=== PATIENT | male | born 1985 | race Caucasian/White ===

== ENCOUNTER 2020-07-25 12:03 | Inpatient (IN) | payer BC ==
[~2020-07-25] VITALS: Ht 182.9 cm; Wt 95.5 kg
[~2020-07-25 12:03] MED LIST: DIPH25TA89 PO; PRED50TA PO
[2020-07-25] MEDS ORDERED: vancomycin/NS 1 GM ADD-VANTAGE 250 ML IV ONE (12:10)
[2020-07-25] MEDS ORDERED: piperacillin/tazo 3.375gm/50ml 50 ML IV ONE (12:10)
[2020-07-25] MEDS ORDERED: normal saline 1000ML IV soln IV ONE (12:10)
[2020-07-25 12:56] LABS: BASOPHILS # (AUTO) 0.1 X10'3 (0-0.2); BASOPHILS % (AUTO) 0.6 % (0-1); EOSINOPHILS % (AUTO) 0.5 % (0-6); HEMATOCRIT 33.9 % (42.0-52.0); HEMOGLOBIN 11.6 g/dl (14.0-17.9); LYMPHOCYTES # (AUTO) 0.9 X10'3 (1.1-4.8); LYMPHOCYTES % (AUTO) 11.5 % (21-51); MEAN CORPUSCULAR HEMOGLOBIN 34.6 PG (27.0-31.0); MEAN CORPUSCULAR HGB CONC 34.2 g/dL (33.0-36.5); MEAN CORPUSCULAR VOLUME 101.1 FL (78-98); MEAN PLATELET VOLUME 8.2 FL (7.4-10.4); MONOCYTES # (AUTO) 0.7 X10'3 (0-0.9); MONOCYTES % (AUTO) 9.1 % (2-12); NEUTROPHILS # (AUTO) 6.3 X10'3 (1.8-7.7); NEUTROPHILS % (AUTO) 78.3 % (42-75); PLATELET COUNT 115 X10'3 (140-440); RED BLOOD COUNT 3.35 X10'6 (4.70-6.10); WHITE BLOOD COUNT 8.1 X10'3 (4.5-11.0)
[2020-07-25 13:02] LABS: ALANINE AMINOTRANSFERASE 59 U/L (12-78); ALBUMIN/GLOBULIN RATIO 0.4 (1.1-1.5); ALKALINE PHOSPHATASE 324 IU/L (46-116); ANION GAP 6 (8-16); ASPARTATE AMINO TRANSFERASE 69 U/L (10-37); BILIRUBIN,TOTAL 2.3 MG/DL (0.1-1.0); BLOOD UREA NITROGEN 9 MG/DL (7-18); BUN/CREATININE RATIO 10.7 (5.4-32.0); CALCIUM 8.4 MG/DL (8.5-10.1); CHLORIDE 98 MMOL/L (99-107); CREATININE 0.84 MG/DL (0.60-1.10); GLUCOSE 147 MG/DL (70-104); SODIUM 135 MMOL/L (135-145); TOTAL CARBON DIOXIDE 31.3 MMOL/L (24-32); TOTAL PROTEIN 6.6 G/DL (6.4-8.2); eGFR > 90 ML/MIN
[2020-07-25 13:17] LABS: POTASSIUM 2.7 MMOL/L (3.5-5.1)
[2020-07-25] MEDS ORDERED: LORazepam 2 mg/ml vial IV ONE (13:45)
[2020-07-25] MEDS ORDERED: potassium Cl 10 mEq/100mL bag IV ONE (13:55)
--- NOTE | 2020-07-25 14:09 | NUR ---
1ST LITER NS INFUSING W/O
--- NOTE | 2020-07-25 14:41 | NUR ---
2ND LITER NS INFUSING W/O, VASCULAR STUDY HAS BEEN DONE
--- NOTE | 2020-07-25 15:00 | NUR ---
PT TO CT
[2020-07-25 15:19] LABS: TOTAL CELLS COUNTED 100
[2020-07-25 15:20] LABS: PLATELET ESTIMATE DECREASED; SMUDGE CELLS 1+
--- NOTE | 2020-07-25 15:22 | NUR ---
3RD LITER INFUSING, LAB IS AT BEDSIDE FOR REPEAT LACTIC, PT IS RESTING QUIETLY ON GURNEY
[2020-07-25] MEDS ORDERED: CLINDAMYCIN/D5W 900mg/50ml 50 ML IV ONE (15:25)
[2020-07-25] MEDS ORDERED: BUPR1FIL3 SL (15:28)
[2020-07-25] MEDS ORDERED: CLON0.5T4 PO (15:28)
[2020-07-25] MEDS ORDERED: FLUO10CA28 PO (15:29)
--- NOTE | 2020-07-25 15:53 | NUR ---
Roland GARCIA AWARE PT HAS RECEIVED 3 LITERS OF NS, GAVE VERBAL ORDER FOR NICOTINE PATCH 14MG, PT WAS UP AT BEDSIDE TO USE URINAL WITHOUT ASSIST
[2020-07-25] MEDS ORDERED: nicotine 14mg patch - 24hr TD ONE (15:55)
[2020-07-25 16:17] LABS: CLARITY,URINE CLEAR (Clear); GLUCOSE, URINE NEGATIVE (Neg); KETONES,URINE NEGATIVE (Neg); LEUKOCYTE ESTERASE ,URINE NEGATIVE (Neg); NITRITES, URINE NEGATIVE (Neg); OCCULT BLOOD,URINE NEGATIVE (Neg); PH,URINE 6.5 (4.8-8.0); PROTEIN,URINE NEGATIVE (Neg)
[2020-07-25 16:19] LABS: URINE AMPHETAMINE SCREEN NEGATIVE (Neg); URINE BARBITUATE SCREEN NEGATIVE (Neg); URINE BENZODIAZEPINES SCREEN NEGATIVE (Neg); URINE CANNABINOID SCREEN NEGATIVE (Neg); URINE COCAINE SCREEN NEGATIVE (Neg); URINE METHADONE SCREEN NEGATIVE (Neg); URINE OPIATE SCREEN NEGATIVE (Neg); URINE PHENCYCLIDINE SCREEN NEGATIVE (Neg)
[2020-07-25] MEDS ORDERED: TETanus/Pertussis (Acell)/Diphther VAC/PF (Tdap-Adult) 0.5ml syringe IMVAC ONE (16:45)
[2020-07-25 16:50] LABS: COLOR,URINE DARK YELLOW (Yellow); UA COLLECTION TYPE CLN CATCH MIDSTREAM
[2020-07-25] MEDS ORDERED: metoclopramide 5 mg/ml inj IV PRN (16:50)
[2020-07-25] MEDS ORDERED: magnesium 4gm in 100ml NS 100 ML IV PRN (16:50)
[2020-07-25] MEDS ORDERED: mag hydrox/Alum hydrox/simeth 30ml oral suspension PO PRN (16:50)
[2020-07-25] MEDS ORDERED: LORazepam 1 MG tablet PO PRN (16:50)
[2020-07-25] MEDS ORDERED: potassium CL 10mEq/100ml bag 100 ML IV PRN (16:50)
[2020-07-25] MEDS ORDERED: HYDROmorphone inj. 0.5 MG/0.5 ML DISP.SYRIN IV PRN (16:50)
[2020-07-25] MEDS ORDERED: HYDROcodone/acetaminophen 5mg/325mg tablet PO PRN (16:50)
[2020-07-25] MEDS ORDERED: acetaminophen 650mg rectal suppository RC PRN (16:50)
[2020-07-25] MEDS ORDERED: dextrose 50%-water 50ml dispensing syringe IV PRN (16:50)
[2020-07-25] MEDS ORDERED: haloperidol lactate 5mg/ml inj IM PRN (16:50)
[2020-07-25] MEDS ORDERED: LORazepam 2 mg/ml vial IV PRN (16:50)
[2020-07-25] MEDS ORDERED: HYDROcodone/acetaminophen 10/325mg tab PO PRN (16:50)
[2020-07-25] MEDS ORDERED: magnesium 2GM in 50ml NS 50 ML IV PRN (16:50)
[2020-07-25] MEDS ORDERED: haloperidol 5mg tablet PO PRN (16:50)
[2020-07-25] MEDS ORDERED: acetaminophen 325mg tablet PO PRN (16:50)
[2020-07-25] MEDS ORDERED: bisacodyl 10mg suppository rectal RC PRN (16:50)
[2020-07-25] MEDS ORDERED: magnesium hydroxide 30ml (MOM) UD suspension PO PRN (16:50)
[2020-07-25] MEDS ORDERED: ondansetron/PF 4mg/2ml inj IV PRN (16:50)
[2020-07-25] MEDS ORDERED: thiamine 100mg/ml 2ml inj. IV ONE (16:50)
--- NOTE | 2020-07-25 17:10 | NUR ---
PT CONTINUES TO REST QUIETLY ON GURNEY, RESP EVEN AND UNLABORED, CAP REFILL TO RT FOOT IS LESS THAN 2 SECONDS
[2020-07-25 17:24] LABS: HEMOGLOBIN A1C 5.1 % (4.5-6.2)
[2020-07-25] MEDS: normal saline 1000ml 1,000 ML IV SCH (18:08)
[2020-07-25] MEDS ORDERED: buprenorphine/naloxone 8MG-2MG SUBlingual film SL SCH (20:00)
--- NOTE | 2020-07-25 20:31 | NUR ---
Patient in room ED 16. I have received report from WILLA Powell and had the opportunity to ask questions and assume patient care.
[2020-07-25] MEDS: buprenorphine/naloxone 8MG-2MG SUBlingual film SL SCH (20:35)
[2020-07-25] MEDS: clonazePAM 0.5mg tablet PO SCH (20:35)
[2020-07-25 21:00] VITALS: BP 162/97
[2020-07-25] MEDS ORDERED: temazepam 15mg capsule PO PRN (21:00)
--- NOTE | 2020-07-25 21:03 | NUR ---
pt arrived in the floor, SBP on the 160's, HR 110, P/S 10/10, RLE swollen, warmth and tender, pedal pulses palpable.
[2020-07-25] MEDS: K and/or MAG REPLACEMENT MC SCH (21:05)
[2020-07-25] MEDS: heparin, porcine 5000 units/ml vial SQ SCH (21:10)
[2020-07-25] MEDS: potassium Cl 20 mEq SR tablet PO PRN (21:44)
[2020-07-25] MEDS ORDERED: vancomycin/NS 1 GM ADD-VANTAGE 250 ML IV SCH (23:00)
[2020-07-26] VITALS: BP 139/74
[2020-07-26] MEDS ORDERED: piperacillin/tazo 3.375gm/50ml 50 ML IV SCH
[2020-07-26] MEDS: CLINDAMYCIN/D5W 900mg/50ml 50 ML IV SCH ×3 (00:17→17:56)
[2020-07-26] MEDS: penicillin G potassium inj 3,000,000 UNIT in normal saline 100ml IV soln 100 ML IV SCH ×6 (00:17→21:08)
[2020-07-26] MEDS: acetaminophen 325mg tablet PO PRN (00:24)
[2020-07-26] MEDS: potassium Cl 20 mEq SR tablet PO PRN ×2 (01:24→05:27)
[2020-07-26] MEDS: normal saline 1000ml 1,000 ML IV SCH ×3 (02:10→23:31)
[2020-07-26 06:09] LABS: BASOPHILS % (AUTO) 0.4 % (0-1); EOSINOPHILS # (AUTO) 0.1 X10'3 (0-0.9); EOSINOPHILS % (AUTO) 0.7 % (0-6); HEMATOCRIT 25.9 % (42.0-52.0); HEMOGLOBIN 8.8 g/dl (14.0-17.9); LYMPHOCYTES # (AUTO) 1.3 X10'3 (1.1-4.8); LYMPHOCYTES % (AUTO) 17.3 % (21-51); MEAN CORPUSCULAR HEMOGLOBIN 34.5 PG (27.0-31.0); MEAN CORPUSCULAR HGB CONC 33.9 g/dL (33.0-36.5); MEAN CORPUSCULAR VOLUME 101.8 FL (78-98); MEAN PLATELET VOLUME 7.9 FL (7.4-10.4); MONOCYTES # (AUTO) 0.6 X10'3 (0-0.9); MONOCYTES % (AUTO) 8.5 % (2-12); NEUTROPHILS # (AUTO) 5.4 X10'3 (1.8-7.7); NEUTROPHILS % (AUTO) 73.1 % (42-75); PLATELET COUNT 116 X10'3 (140-440); RED BLOOD COUNT 2.54 X10'6 (4.70-6.10); RED CELL DISTRIBUTION WIDTH 14.5 % (11.5-14.5); WHITE BLOOD COUNT 7.4 X10'3 (4.5-11.0)
[2020-07-26 06:19] LABS: ALANINE AMINOTRANSFERASE 38 U/L (12-78); ALBUMIN 1.5 G/DL (3.4-5.0); ALBUMIN/GLOBULIN RATIO 0.4 (1.1-1.5); ALKALINE PHOSPHATASE 233 IU/L (46-116); ANION GAP 6 (8-16); ASPARTATE AMINO TRANSFERASE 46 U/L (10-37); BILIRUBIN,TOTAL 1.6 MG/DL (0.1-1.0); BLOOD UREA NITROGEN 6 MG/DL (7-18); BUN/CREATININE RATIO 9.7 (5.4-32.0); CALCIUM 7.3 MG/DL (8.5-10.1); CHLORIDE 102 MMOL/L (99-107); CHOL/HDL RATIO 19.1 (0.00-4.99); CHOLESTEROL 267 MG/DL (0-200); CREATININE 0.62 MG/DL (0.60-1.10); GLUCOSE 85 MG/DL (70-104); HDL CHOLESTEROL 14 MG/DL (35-60); LDL CHOLESTEROL 212 MG/DL (50-100); MAGNESIUM 1.2 MG/DL (1.5-2.4); PHOSPHORUS 3.3 MG/DL (2.3-4.5); SODIUM 140 MMOL/L (135-145); TOTAL CARBON DIOXIDE 32.3 MMOL/L (24-32); TOTAL PROTEIN 5.2 G/DL (6.4-8.2); TRIGLYCERIDES 258 MG/DL (20-135); eGFR > 90 ML/MIN
[2020-07-26 06:22] LABS: POTASSIUM 2.8 MMOL/L (3.5-5.1)
--- NOTE | 2020-07-26 06:23 | NUR ---
Problems reprioritized. Patient report given, questions answered & plan of care reviewed with WILLA Huddleston.
[2020-07-26 07:00] VITALS: BP 141/87
[2020-07-26] MEDS: K and/or MAG REPLACEMENT MC SCH ×2 (08:00→20:00)
[2020-07-26 08:30] LABS: PLATELET ESTIMATE DECREASED; STOMATOCYTES 2+
[2020-07-26 08:31] LABS: HYPOCHROMASIA 1+
[2020-07-26 08:32] LABS: POLYCHROMASIA FEW
[2020-07-26] MEDS: folic acid 1mg tablet PO SCH (08:46)
[2020-07-26] MEDS: clonazePAM 0.5mg tablet PO SCH ×2 (08:52→19:54)
[2020-07-26] MEDS: FLUoxetine 10mg capsule PO SCH (08:53)
[2020-07-26] MEDS: thiamine 100mg tablet PO SCH (08:53)
[2020-07-26] MEDS: multivitamins, therapeutics tablet PO SCH (08:53)
[2020-07-26] MEDS: buprenorphine/naloxone 8MG-2MG SUBlingual film SL SCH ×2 (08:53→19:55)
[2020-07-26] MEDS: heparin, porcine 5000 units/ml vial SQ SCH ×2 (08:54→19:54)
[2020-07-26] MEDS: nicotine 14mg patch - 24hr TD SCH (08:55)
[2020-07-26 11:00] VITALS: BP 135/86
--- NOTE | 2020-07-26 11:30 | NUR ---
FORGOT TO FOLLOW UP WITH STUDENT NURSE FOR MED ADMINISTRATION
--- NOTE | 2020-07-26 18:25 | NUR ---
Problems reprioritized. Patient report given, questions answered & plan of care reviewed with NIMO Dodd RN.
--- NOTE | 2020-07-26 18:43 | NUR ---
Patient in room [facility]. I have received report from WILLA BUTLER and had the opportunity to ask questions and assume patient care. Addendum: 07/26/20 at 1843 by Payton Weathers RN Amended: Links added.
[2020-07-26] MEDS: potassium CL 10mEq/100ml bag 100 ML IV PRN ×4 (19:45→23:31)
[2020-07-26] MEDS: lactobacillus rhamnosus 10,000 MMU CELLS/CAPSULE PO SCH (19:55)
[2020-07-26 20:00] VITALS: BP 149/91
[2020-07-27] VITALS: BP 144/90
[2020-07-27] MEDS: penicillin G potassium inj 3,000,000 UNIT in normal saline 100ml IV soln 100 ML IV SCH ×6 (00:02→20:00)
[2020-07-27] MEDS: CLINDAMYCIN/D5W 900mg/50ml 50 ML IV SCH ×4 (00:03→23:28)
[2020-07-27 05:18] LABS: BASOPHILS # (AUTO) 0.1 X10'3 (0-0.2); BASOPHILS % (AUTO) 0.6 % (0-1); EOSINOPHILS # (AUTO) 0.1 X10'3 (0-0.9); EOSINOPHILS % (AUTO) 0.6 % (0-6); HEMOGLOBIN 8.7 g/dl (14.0-17.9); LYMPHOCYTES # (AUTO) 1.4 X10'3 (1.1-4.8); LYMPHOCYTES % (AUTO) 14.9 % (21-51); MEAN CORPUSCULAR HGB CONC 33.5 g/dL (33.0-36.5); MEAN CORPUSCULAR VOLUME 101.4 FL (78-98); MEAN PLATELET VOLUME 7.7 FL (7.4-10.4); MONOCYTES # (AUTO) 0.7 X10'3 (0-0.9); MONOCYTES % (AUTO) 7.1 % (2-12); NEUTROPHILS # (AUTO) 7.1 X10'3 (1.8-7.7); NEUTROPHILS % (AUTO) 76.8 % (42-75); PLATELET COUNT 161 X10'3 (140-440); RED BLOOD COUNT 2.56 X10'6 (4.70-6.10); WHITE BLOOD COUNT 9.2 X10'3 (4.5-11.0)
[2020-07-27 05:38] LABS: ALANINE AMINOTRANSFERASE 33 U/L (12-78); ALBUMIN 1.6 G/DL (3.4-5.0); ALBUMIN/GLOBULIN RATIO 0.4 (1.1-1.5); ALKALINE PHOSPHATASE 217 IU/L (46-116); ANION GAP 5 (8-16); ASPARTATE AMINO TRANSFERASE 41 U/L (10-37); BILIRUBIN,TOTAL 1.4 MG/DL (0.1-1.0); BLOOD UREA NITROGEN 6 MG/DL (7-18); BUN/CREATININE RATIO 9.8 (5.4-32.0); CALCIUM 7.8 MG/DL (8.5-10.1); CHLORIDE 102 MMOL/L (99-107); CREATININE 0.61 MG/DL (0.60-1.10); GLUCOSE 81 MG/DL (70-104); MAGNESIUM 1.3 MG/DL (1.5-2.4); PHOSPHORUS 3.5 MG/DL (2.3-4.5); POTASSIUM 3.1 MMOL/L (3.5-5.1); SODIUM 137 MMOL/L (135-145); TOTAL CARBON DIOXIDE 29.8 MMOL/L (24-32); TOTAL PROTEIN 5.6 G/DL (6.4-8.2); eGFR > 90 ML/MIN
[2020-07-27 06:22] LABS: TOTAL CELLS COUNTED 100
[2020-07-27 06:23] LABS: PLATELET ESTIMATE NORMAL
[2020-07-27 06:24] LABS: POLYCHROMASIA 1+
--- NOTE | 2020-07-27 06:36 | NUR ---
Problems reprioritized. Patient report given, questions answered & plan of care reviewed with WILLA Huddleston.
--- NOTE | 2020-07-27 06:52 | NUR ---
Patient in room [facility] 346B. I have received report from NIMO Cavazos RN and had the opportunity to ask questions and assume patient care.
[2020-07-27 07:00] VITALS: BP 126/77
[2020-07-27] MEDS: FLUoxetine 10mg capsule PO SCH (07:37)
[2020-07-27] MEDS: clonazePAM 0.5mg tablet PO SCH ×2 (07:37→19:55)
[2020-07-27] MEDS: potassium Cl 20 mEq SR tablet PO PRN ×3 (07:38→23:25)
[2020-07-27] MEDS: magnesium Cl slow-release 64mg tablet PO PRN ×2 (07:39→23:25)
[2020-07-27] MEDS: folic acid 1mg tablet PO SCH (07:39)
[2020-07-27] MEDS: lactobacillus rhamnosus 10,000 MMU CELLS/CAPSULE PO SCH ×2 (07:39→19:55)
[2020-07-27] MEDS: thiamine 100mg tablet PO SCH (07:40)
[2020-07-27] MEDS: buprenorphine/naloxone 8MG-2MG SUBlingual film SL SCH ×2 (07:40→19:55)
[2020-07-27] MEDS: multivitamins, therapeutics tablet PO SCH (07:40)
[2020-07-27] MEDS: nicotine 14mg patch - 24hr TD SCH (07:41)
[2020-07-27] MEDS: heparin, porcine 5000 units/ml vial SQ SCH ×2 (07:46→19:54)
[2020-07-27] MEDS: K and/or MAG REPLACEMENT MC SCH ×2 (08:00→20:00)
[2020-07-27] MEDS: normal saline 1000ml 1,000 ML IV SCH (09:14)
[2020-07-27 11:00] VITALS: BP 130/68
[2020-07-27] MEDS: metoprolol tartrate 12.5mg (1/2 tablet) PO SCH ×2 (12:21→19:57)
[2020-07-27 15:54] LABS: HIV ANTIBODY 1&2 RAPID NON-REACTIVE (Neg)
[2020-07-27] MEDS: acetaminophen 325mg tablet PO PRN (17:09)
--- NOTE | 2020-07-27 18:48 | NUR ---
Problems reprioritized. Patient report given, questions answered & plan of care reviewed with SP SNOWDEN RN.
--- NOTE | 2020-07-27 18:49 | NUR ---
Patient in room [facility]. I have received report from LUKE CROUCH and had the opportunity to ask questions and assume patient care.
[2020-07-27 20:00] VITALS: BP 146/90
[2020-07-28] VITALS: BP 146/92
[2020-07-28] MEDS: penicillin G potassium inj 3,000,000 UNIT in normal saline 100ml IV soln 100 ML IV SCH ×5 (00:16→16:00)
[2020-07-28 06:05] LABS: BASOPHILS % (AUTO) 0.3 % (0-1); EOSINOPHILS % (AUTO) 0.5 % (0-6); HEMOGLOBIN 8.3 g/dl (14.0-17.9); LYMPHOCYTES # (AUTO) 1.4 X10'3 (1.1-4.8); LYMPHOCYTES % (AUTO) 14.5 % (21-51); MEAN CORPUSCULAR HEMOGLOBIN 34.9 PG (27.0-31.0); MEAN CORPUSCULAR HGB CONC 34.5 g/dL (33.0-36.5); MEAN CORPUSCULAR VOLUME 101.3 FL (78-98); MEAN PLATELET VOLUME 7.4 FL (7.4-10.4); MONOCYTES # (AUTO) 0.6 X10'3 (0-0.9); MONOCYTES % (AUTO) 6.6 % (2-12); NEUTROPHILS # (AUTO) 7.3 X10'3 (1.8-7.7); NEUTROPHILS % (AUTO) 78.1 % (42-75); PLATELET COUNT 194 X10'3 (140-440); RED BLOOD COUNT 2.37 X10'6 (4.70-6.10); RED CELL DISTRIBUTION WIDTH 15.1 % (11.5-14.5); WHITE BLOOD COUNT 9.4 X10'3 (4.5-11.0)
[2020-07-28 06:10] VITALS: BP 141/92
[2020-07-28 06:15] LABS: ALANINE AMINOTRANSFERASE 27 U/L (12-78); ALBUMIN 1.5 G/DL (3.4-5.0); ALBUMIN/GLOBULIN RATIO 0.4 (1.1-1.5); ALKALINE PHOSPHATASE 186 IU/L (46-116); ANION GAP 6 (8-16); ASPARTATE AMINO TRANSFERASE 37 U/L (10-37); BILIRUBIN,TOTAL 0.9 MG/DL (0.1-1.0); BLOOD UREA NITROGEN 8 MG/DL (7-18); BUN/CREATININE RATIO 11.9 (5.4-32.0); CHLORIDE 103 MMOL/L (99-107); CREATININE 0.67 MG/DL (0.60-1.10); GLUCOSE 87 MG/DL (70-104); MAGNESIUM 1.6 MG/DL (1.5-2.4); PHOSPHORUS 4.6 MG/DL (2.3-4.5); POTASSIUM 3.4 MMOL/L (3.5-5.1); SODIUM 137 MMOL/L (135-145); TOTAL CARBON DIOXIDE 28.1 MMOL/L (24-32); TOTAL PROTEIN 5.5 G/DL (6.4-8.2); eGFR > 90 ML/MIN
--- NOTE | 2020-07-28 06:25 | NUR ---
Problems reprioritized. Patient report given, questions answered & plan of care reviewed with KARLOS CROUCH.
--- NOTE | 2020-07-28 06:31 | NUR ---
Patient in room [facility] 346 B. I have received report from Cassia CROUCH and had the opportunity to ask questions and assume patient care.
--- NOTE | 2020-07-28 06:41 | NUR ---
Patient in room [facility]. I have received report from Cassia CROUCH and had the opportunity to ask questions and assume patient care.
[2020-07-28] MEDS: FLUoxetine 10mg capsule PO SCH (07:26)
[2020-07-28] MEDS: metoprolol tartrate 12.5mg (1/2 tablet) PO SCH (07:26)
[2020-07-28] MEDS: folic acid 1mg tablet PO SCH (07:27)
[2020-07-28] MEDS: clonazePAM 0.5mg tablet PO SCH (07:27)
[2020-07-28] MEDS: multivitamins, therapeutics tablet PO SCH (07:27)
[2020-07-28] MEDS: CLINDAMYCIN/D5W 900mg/50ml 50 ML IV SCH ×2 (07:27→16:00)
[2020-07-28] MEDS: lactobacillus rhamnosus 10,000 MMU CELLS/CAPSULE PO SCH (07:27)
[2020-07-28] MEDS: thiamine 100mg tablet PO SCH (07:27)
[2020-07-28] MEDS: potassium Cl 20 mEq SR tablet PO PRN ×2 (07:27→12:20)
[2020-07-28] MEDS: nicotine 14mg patch - 24hr TD SCH (07:28)
[2020-07-28] MEDS: buprenorphine/naloxone 8MG-2MG SUBlingual film SL SCH (07:28)
[2020-07-28] MEDS: heparin, porcine 5000 units/ml vial SQ SCH (07:28)
[2020-07-28] MEDS: K and/or MAG REPLACEMENT MC SCH (07:38)
[2020-07-28 08:29] LABS: TOTAL CELLS COUNTED 100
[2020-07-28 08:32] LABS: PLATELET ESTIMATE NORMAL
[2020-07-28 08:33] LABS: POLYCHROMASIA 1+; STOMATOCYTES 2+
[2020-07-28 11:00] VITALS: BP 129/80
[2020-07-28 15:46] LABS: HBSAG SCREEN Negative (Negative); HEP A AB, IGM Negative (Negative); HEPATITIS C ANTIBODY <0.1 s/co ratio (0.0-0.9)
[2020-07-28] MEDS ORDERED: thiamine tablet PO (16:28)
[2020-07-28] MEDS ORDERED: MULT-25 PO (16:28)
[2020-07-28] MEDS ORDERED: folic acid tablet PO (16:28)
[2020-07-28] MEDS ORDERED: NICO-631 TD (16:28)
[2020-07-28] MEDS ORDERED: FLUO10CA PO (16:28)
[2020-07-28] MEDS ORDERED: METO25TA6 PO (16:28)
[2020-07-28] MEDS ORDERED: CEPH500C5 PO (16:31)
[2020-07-28] MEDS ORDERED: potassium Cl 20 mEq SR tablet PO ONE (16:55)
[2020-07-29] MEDS ORDERED: FLUoxetine 10mg capsule PO SCH (08:00)
== END 2020-07-28 17:05 | disposition home or self-care (01) | DRG 603 ==
LOC: ER 12:04 → ED HOLD 16:47 → SUR 3N 20:45
PROVIDERS: ADMIT Family Medicine; ATTEND Family Medicine
PROC: 3E0234Z Introduction of Serum, Toxoid and Vaccine into Muscle, Percutaneous Approach (ICD-10-PCS; principal; 2020-07-25)
PROC: BQ2R1ZZ Computerized Tomography (CT Scan) of Right Lower Extremity using Low Osmolar Contrast (ICD-10-PCS; 2020-07-25)
DX: L03.115 Cellulitis of right lower limb (principal); E46 Unspecified protein-calorie malnutrition; A46 Erysipelas; D53.9 Nutritional anemia, unspecified; E83.39 Other disorders of phosphorus metabolism; E83.42 Hypomagnesemia; F32.9 Major depressive disorder, single episode, unspecified; G89.29 Other chronic pain; E78.5 Hyperlipidemia, unspecified; R00.0 Tachycardia, unspecified; R74.0 Nonspecific elevation of levels of transaminase and lactic acid dehydrogenase [LDH]; R94.6 Abnormal results of thyroid function studies; E87.6 Hypokalemia; F10.20 Alcohol dependence, uncomplicated; F17.200 Nicotine dependence, unspecified, uncomplicated; F41.1 Generalized anxiety disorder; I10 Essential (primary) hypertension; Z23 Encounter for immunization; Z68.28 Body mass index [BMI] 28.0-28.9, adult; Z71.6 Tobacco abuse counseling; Z71.41 Alcohol abuse counseling and surveillance of alcoholic
CPT/HCPCS: 36415; 73701; 80053; 80061; 80074; 80305; 81003; 83036; 83605; 83735; 84100; 84132; 84145; 84443; 85007; 85008; 85025; 86140; 86703; 87040; 87081; 90471; 90715; 93971; 96365; 96366; 96367; 96368; 96375; 99291; G0378; J1644; J2060; J2540; J2543; J3370; J3411; J3480; J3490; J7030

== ENCOUNTER 2020-12-26 23:25 | Emergency (ER) | payer BC ==
[~2020-12-26 23:25] MED LIST changes: +BUPR1FIL3 SL; +CEPH500C5 PO; +CLON0.5T4 PO; -DIPH25TA89 PO; +FLUO10CA PO; +METO25TA6 PO; +MULT-25 PO; +NICO-631 TD; -PRED50TA PO; +folic acid tablet PO; +thiamine tablet PO
[2020-12-26] MEDS ORDERED: LIDOcaine 1% W/epiNEPHrine 1:200,000 10ml vial IJ ONE (23:30)
[2020-12-26] MEDS ORDERED: TETanus/Pertussis (Acell)/Diphther VAC/PF (Tdap-Adult) 0.5ml syringe IMVAC ONE ×2 (23:30→23:45)
--- NOTE | 2020-12-27 00:32 | NUR ---
Patient to CT
[2020-12-27 01:20] VITALS: BP 155/113
== END 2020-12-27 01:23 | disposition home or self-care (01) ==
LOC: ER 23:25
DX: S01.511A Laceration without foreign body of lip, initial encounter (principal); S81.012A Laceration without foreign body, left knee, initial encounter; F10.129 Alcohol abuse with intoxication, unspecified; G89.29 Other chronic pain; Z20.3 Contact with and (suspected) exposure to rabies; Z72.89 Other problems related to lifestyle; Z79.2 Long term (current) use of antibiotics; Z79.899 Other long term (current) drug therapy; W18.39XA Other fall on same level, initial encounter; Y93.89 Activity, other specified; Y92.89 Other specified places as the place of occurrence of the external cause; Y99.8 Other external cause status
CPT/HCPCS: 12004; 12014; 70450; 73130; 90471; 90715; 99284

== ENCOUNTER 2021-06-07 11:31 | Emergency (ER) | payer MEDICAID, OTHER ==
[~2021-06-07] VITALS: Ht 185.4 cm; Wt 100.0 kg
[~2021-06-07 11:31] MED LIST changes: +CEPH-585 PO; -CEPH500C5 PO; +LOP25T PO; -METO25TA6 PO
[2021-06-07] MEDS ORDERED: sucralfate 1gm/10ml UD suspension PO STA (13:03)
[2021-06-07] MEDS ORDERED: metoclopramide 5 mg/ml inj IV ONE (13:05)
[2021-06-07] MEDS ORDERED: normal saline 1000ML IV soln IVB ONE (13:05)
[2021-06-07] MEDS ORDERED: mag hydrox/Alum hydrox/simeth 30ml oral suspension PO ONE (13:05)
[2021-06-07] MEDS ORDERED: LORazepam 2 mg/ml vial IV ONE (13:05)
[2021-06-07] MEDS ORDERED: famotidine/PF 10 mg/ml inj IV ONE (13:05)
[2021-06-07] MEDS ORDERED: folic acid 1mg/0.2ml inj IV ONE (13:05)
[2021-06-07] MEDS ORDERED: thiamine 100mg/ml 2ml inj. IV ONE (13:05)
[2021-06-07] MEDS ORDERED: LIDOcaine Viscous 15ml cup MM ONE (13:05)
[2021-06-07 13:54] LABS: EOSINOPHILS # (AUTO) 0.1 X10'3 (0-0.9); HEMOGLOBIN 16.7 g/dl (14.0-17.9); WHITE BLOOD COUNT 4.8 X10'3 (4.5-11.0)
[2021-06-07 13:56] LABS: BASOPHILS % (AUTO) 0.5 % (0-1); EOSINOPHILS % (AUTO) 2.2 % (0-6); HEMATOCRIT 47.6 % (42.0-52.0); LYMPHOCYTES # (AUTO) 0.7 X10'3 (1.1-4.8); LYMPHOCYTES % (AUTO) 14.5 % (21-51); MEAN CORPUSCULAR HEMOGLOBIN 37.3 PG (27.0-31.0); MEAN CORPUSCULAR VOLUME 106.6 FL (78-98); MEAN PLATELET VOLUME 9.2 FL (7.4-10.4); MONOCYTES # (AUTO) 0.6 X10'3 (0-0.9); MONOCYTES % (AUTO) 13.5 % (2-12); NEUTROPHILS # (AUTO) 3.3 X10'3 (1.8-7.7); NEUTROPHILS % (AUTO) 69.3 % (42-75); PLATELET COUNT 85 X10'3 (140-440); RED BLOOD COUNT 4.47 X10'6 (4.70-6.10); RED CELL DISTRIBUTION WIDTH 14.7 % (11.5-14.5)
[2021-06-07 14:07] LABS: ALANINE AMINOTRANSFERASE 103 U/L (12-78); ALBUMIN 3.5 G/DL (3.4-5.0); ALBUMIN/GLOBULIN RATIO 0.8 (1.1-1.5); ALKALINE PHOSPHATASE 156 IU/L (46-116); ANION GAP 15 (8-16); ASPARTATE AMINO TRANSFERASE 183 U/L (10-37); BILIRUBIN,TOTAL 1.3 MG/DL (0.1-1.0); BLOOD UREA NITROGEN 5 MG/DL (7-18); BUN/CREATININE RATIO 7.6 (5.4-32.0); CALCIUM 9.4 MG/DL (8.5-10.1); CHLORIDE 96 MMOL/L (99-107); CREATININE 0.66 MG/DL (0.60-1.10); ETHANOL < 0.010 GM/DL (0.0-0.010); GLUCOSE 109 MG/DL (70-104); LIPASE 495 U/L (73-393); SODIUM 137 MMOL/L (135-145); TOTAL CARBON DIOXIDE 26.2 MMOL/L (24-32); TOTAL PROTEIN 7.9 G/DL (6.4-8.2); eGFR > 90 ML/MIN
[2021-06-07] MEDS ORDERED: potassium Cl 20 mEq SR tablet PO STA (14:18)
[2021-06-07 14:19] LABS: POTASSIUM 2.9 MMOL/L (3.5-5.1)
[2021-06-07] MEDS ORDERED: potassium Cl 10 mEq/100mL bag IV ONE (14:20)
[2021-06-07 14:25] LABS: CLARITY,URINE CLOUDY (Clear); COLOR,URINE AMBER (Yellow); GLUCOSE, URINE NEGATIVE (Neg); KETONES,URINE TRACE mg/dl (Neg); LEUKOCYTE ESTERASE ,URINE NEGATIVE (Neg); NITRITES, URINE NEGATIVE (Neg); OCCULT BLOOD,URINE NEGATIVE (Neg); PH,URINE 5.5 (4.8-8.0); PROTEIN,URINE 30 mg/dl (Neg)
[2021-06-07 14:29] LABS: UA COLLECTION TYPE URINAL
[2021-06-07 14:32] LABS: URINE AMPHETAMINE SCREEN NEGATIVE (Neg); URINE BARBITUATE SCREEN NEGATIVE (Neg); URINE BENZODIAZEPINES SCREEN POSITIVE (Neg); URINE CANNABINOID SCREEN NEGATIVE (Neg); URINE COCAINE SCREEN NEGATIVE (Neg); URINE METHADONE SCREEN NEGATIVE (Neg); URINE OPIATE SCREEN NEGATIVE (Neg); URINE PHENCYCLIDINE SCREEN NEGATIVE (Neg)
[2021-06-07 14:37] LABS: FINE GRANULAR CAST 0-3 /LPF (NEGATIVE); WBC CASTS 0-3 /LPF (NEGATIVE)
[2021-06-07 14:38] LABS: MUCUS STRANDS MODERATE /LPF (Neg); SQUAMOUS EPITHELIAL CELL,UR FEW /LPF (FEW); TRANSITIONAL EPI CELLS,URINE FEW /HPF
[2021-06-07 14:39] LABS: COARSE GRANULAR CAST 0-3 /LPF (NEGATIVE)
[2021-06-07 14:40] LABS: CELLULAR CAST 0-4 /LPF (NEGATIVE); RENAL CELLS, URINE MANY /HPF
[2021-06-07 14:42] LABS: RBC,URINE 0-2 /HPF (0-2)
[2021-06-07 14:43] LABS: BACTERIA,URINE NONE SEEN /HPF (Neg)
[2021-06-07 14:45] LABS: WBC,URINE 0-4 /HPF (0-4)
[2021-06-07 14:46] LABS: RED BLOOD CELL CASTS,URINE 0-3 /LPF (NEGATIVE)
[2021-06-07] MEDS ORDERED: ketorolac trometh. 30mg/ml inj. IV ONE (15:30)
[2021-06-07] MEDS ORDERED: HYDROcodone/acetaminophen 5mg/325mg tablet PO ONE (15:30)
[2021-06-07 15:58] VITALS: BP 139/101
== END 2021-06-07 15:59 | disposition home or self-care (01) ==
LOC: ER 11:32
DX: K85.20 Alcohol induced acute pancreatitis without necrosis or infection (principal); F10.20 Alcohol dependence, uncomplicated; E87.6 Hypokalemia; G89.29 Other chronic pain; Y90.0 Blood alcohol level of less than 20 mg/100 ml; Z79.899 Other long term (current) drug therapy
CPT/HCPCS: 36415; 80053; 80305; 80320; 81001; 83690; 85025; 93005; 96361; 96365; 96375; 99284; J1885; J2060; J2765; J3411; J3480; J3490; J7030

== ENCOUNTER 2022-01-22 22:31 | Inpatient (IN) | payer MEDICAID ==
[~2022-01-22] VITALS: Ht 182.9 cm; Wt 100.0 kg
[~2022-01-22 22:31] MED LIST changes: -CEPH-585 PO
[2022-01-22 23:14] LABS: BASOPHILS % (AUTO) 0.6 % (0-1); EOSINOPHILS # (AUTO) 0.1 X10'3 (0-0.9); HEMATOCRIT 45.8 % (42.0-52.0); HEMOGLOBIN 15.8 g/dl (14.0-17.9); LYMPHOCYTES # (AUTO) 1.5 X10'3 (1.1-4.8); LYMPHOCYTES % (AUTO) 19.1 % (21-51); MEAN CORPUSCULAR HEMOGLOBIN 33.4 PG (27.0-31.0); MEAN CORPUSCULAR HGB CONC 34.4 g/dL (33.0-36.5); MEAN CORPUSCULAR VOLUME 97.2 FL (78-98); MEAN PLATELET VOLUME 8.4 FL (7.4-10.4); MONOCYTES # (AUTO) 0.8 X10'3 (0-0.9); MONOCYTES % (AUTO) 10.4 % (2-12); NEUTROPHILS # (AUTO) 5.4 X10'3 (1.8-7.7); NEUTROPHILS % (AUTO) 68.9 % (42-75); PLATELET COUNT 281 X10'3 (140-440); RED BLOOD COUNT 4.72 X10'6 (4.70-6.10); RED CELL DISTRIBUTION WIDTH 15.6 % (11.5-14.5); WHITE BLOOD COUNT 7.9 X10'3 (4.5-11.0)
[2022-01-22 23:27] LABS: ALANINE AMINOTRANSFERASE 39 U/L (12-78); ALBUMIN/GLOBULIN RATIO 0.9 (1.1-1.5); ALKALINE PHOSPHATASE 115 IU/L (46-116); ANION GAP 18 (8-16); ASPARTATE AMINO TRANSFERASE 41 U/L (10-37); BLOOD UREA NITROGEN 10 MG/DL (7-18); BUN/CREATININE RATIO 11.1 (5.4-32.0); CALCIUM 9.9 MG/DL (8.5-10.1); CHLORIDE 94 MMOL/L (99-107); GLUCOSE 96 MG/DL (70-104); SODIUM 131 MMOL/L (135-145); TOTAL CARBON DIOXIDE 19.3 MMOL/L (24-32); TOTAL PROTEIN 8.5 G/DL (6.4-8.2); eGFR > 90 ML/MIN
[2022-01-22] MEDS ORDERED: LORazepam 2 mg/ml vial IV ONE (23:35)
[2022-01-22] MEDS ORDERED: normal saline 1000ml 1,000 ML IV ONE (23:40)
[2022-01-22 23:49] LABS: ETHANOL < 0.010 GM/DL (0.0-0.010)
[2022-01-23] MEDS ORDERED: mag hydrox/Alum hydrox/simeth 30ml oral suspension PO PRN (00:20)
[2022-01-23] MEDS ORDERED: HYDROcodone/acetaminophen 5mg/325mg tablet PO PRN (00:20)
[2022-01-23] MEDS ORDERED: magnesium hydroxide 30ml (MOM) UD suspension PO PRN (00:20)
[2022-01-23] MEDS ORDERED: diphenhydrAMINE 25mg capsule PO PRN (00:20)
[2022-01-23] MEDS ORDERED: acetaminophen 650mg rectal suppository RC PRN (00:20)
[2022-01-23] MEDS ORDERED: acetaminophen 325mg tablet PO PRN (00:20)
[2022-01-23] MEDS ORDERED: dicyclomine 10 MG capsule PO PRN (00:20)
[2022-01-23] MEDS ORDERED: morphine 2 MG/ML inj. syringe IV PRN ×2 (00:20)
[2022-01-23] MEDS ORDERED: cloNIDine 0.1 MG/24 HOUR patch (7 day patch) TD SCH (00:20)
[2022-01-23] MEDS ORDERED: diphenhydrAMINE 50 mg/ml inj IV PRN (00:20)
[2022-01-23] MEDS ORDERED: HYDROcodone/acetaminophen 10/325mg tab PO PRN (00:20)
[2022-01-23] MEDS: normal saline 1000ml 1,000 ML IV SCH ×3 (00:20→12:32)
[2022-01-23] MEDS ORDERED: cyclobenzaprine 10mg tablet PO PRN (00:20)
[2022-01-23] MEDS ORDERED: loperamide 2mg capsule PO PRN (00:20)
[2022-01-23] MEDS ORDERED: dextrose 50%-water 50ml dispensing syringe IV PRN (00:20)
[2022-01-23] MEDS ORDERED: ondansetron/PF 4mg/2ml inj IV PRN (00:20)
[2022-01-23] MEDS ORDERED: ondansetron 4mg rapidly disintigrating tab PO PRN (00:20)
[2022-01-23] MEDS ORDERED: haloperidol lactate 5mg/ml inj IM PRN (00:20)
[2022-01-23] MEDS ORDERED: LORazepam 2 mg/ml vial IV PRN (00:20)
[2022-01-23] MEDS ORDERED: bisacodyl 10mg suppository rectal RC PRN (00:20)
[2022-01-23 00:52] LABS: CREATINE KINASE 22 U/L (39-308); LIPASE < 50 U/L (73-393)
[2022-01-23] MEDS: LORazepam 2 mg/ml vial IV PRN ×5 (01:36→22:04)
[2022-01-23 01:39] LABS: APTT 29 SECONDS (22-32); D-DIMER 1.77 MG/L FEU (0-0.50)
[2022-01-23] MEDS ORDERED: BUPR1FIL3 SL (02:01)
[2022-01-23 02:09] LABS: MAGNESIUM 1.7 MG/DL (1.5-2.4); PHOSPHORUS 3.8 MG/DL (2.3-4.5)
[2022-01-23 02:18] LABS: HEMOGLOBIN A1C 4.5 % (4.5-6.2)
[2022-01-23 03:56] VITALS: BP 121/89
[2022-01-23 06:00] VITALS: BP 121/79
--- NOTE | 2022-01-23 06:25 | NUR ---
Patient in room [facility]012. I have received report from Jacquelin CROUCH and had the opportunity to ask questions and assume patient care.
--- NOTE | 2022-01-23 06:30 | NUR ---
Patient in room [facility]012. I have received report from WILLA Roper and had the opportunity to ask questions and assume patient care.
[2022-01-23] MEDS: docusate sod 100mg capsule PO SCH ×2 (08:00→19:56)
[2022-01-23 08:09] LABS: BASOPHILS # (AUTO) 0.1 X10'3 (0-0.2); BASOPHILS % (AUTO) 1.1 % (0-1); EOSINOPHILS # (AUTO) 0.1 X10'3 (0-0.9); EOSINOPHILS % (AUTO) 2.2 % (0-6); HEMATOCRIT 40.6 % (42.0-52.0); HEMOGLOBIN 13.5 g/dl (14.0-17.9); LYMPHOCYTES # (AUTO) 1.5 X10'3 (1.1-4.8); LYMPHOCYTES % (AUTO) 28.8 % (21-51); MEAN CORPUSCULAR HEMOGLOBIN 32.7 PG (27.0-31.0); MEAN CORPUSCULAR HGB CONC 33.3 g/dL (33.0-36.5); MEAN CORPUSCULAR VOLUME 98.3 FL (78-98); MEAN PLATELET VOLUME 8.3 FL (7.4-10.4); MONOCYTES # (AUTO) 0.6 X10'3 (0-0.9); MONOCYTES % (AUTO) 11.6 % (2-12); NEUTROPHILS # (AUTO) 2.9 X10'3 (1.8-7.7); NEUTROPHILS % (AUTO) 56.3 % (42-75); PLATELET COUNT 210 X10'3 (140-440); RED BLOOD COUNT 4.13 X10'6 (4.70-6.10); RED CELL DISTRIBUTION WIDTH 15.4 % (11.5-14.5); WHITE BLOOD COUNT 5.2 X10'3 (4.5-11.0)
[2022-01-23 08:13] LABS: ALBUMIN 3.1 G/DL (3.4-5.0); ANION GAP 9 (8-16); BLOOD UREA NITROGEN 7 MG/DL (7-18); CALCIUM 8.3 MG/DL (8.5-10.1); CHLORIDE 106 MMOL/L (99-107); GLUCOSE 107 MG/DL (70-104); POTASSIUM 3.9 MMOL/L (3.5-5.1); SODIUM 139 MMOL/L (135-145); TOTAL CARBON DIOXIDE 24.2 MMOL/L (24-32); eGFR > 90 ML/MIN
[2022-01-23] MEDS: thiamine 100mg/ml 2ml inj. IV SCH ×3 (08:56→19:56)
[2022-01-23] MEDS: nicotine 21mg patch - 24 hr TD SCH (08:56)
[2022-01-23] MEDS: pantoprazole 40mg Tablet.DR PO SCH (08:57)
[2022-01-23] MEDS: heparin, porcine 5000 units/ml vial SQ SCH ×2 (08:58→19:56)
[2022-01-23] MEDS: acetaminophen 325mg tablet PO PRN ×2 (09:00→15:25)
[2022-01-23] MEDS: folic acid 1mg/0.2ml inj IV SCH (09:15)
[2022-01-23 11:00] VITALS: BP 114/78
--- NOTE | 2022-01-23 11:35 | NUR ---
Met with patient in regards to alcohol use and to see if patient was interested in treatment options. Patient would like resources on inpatient and outpatient services. I gave patient beacons number to call and start that process. I also gave patient my card to call me with any questions.
[2022-01-23] MEDS: buprenorphine/naloxone 8MG-2MG SUBlingual film SL SCH (14:24)
[2022-01-23 15:00] VITALS: BP 133/94
[2022-01-23 18:00] VITALS: BP 139/96
--- NOTE | 2022-01-23 18:00 | NUR ---
[place] documentation: I have reviewed and agree with all interventions, assessments performed and documented by Edna Dunne RN.
--- NOTE | 2022-01-23 18:10 | NUR ---
Problems reprioritized. Patient report given, questions answered & plan of care reviewed with Jacquelin CROUCH.
--- NOTE | 2022-01-23 18:11 | NUR ---
Problems reprioritized. Patient report given, questions answered & plan of care reviewed with WILLA Roper.
[2022-01-23] MEDS ORDERED: temazepam 15mg capsule PO PRN (21:00)
[2022-01-23 22:00] VITALS: BP 130/92
[2022-01-24 02:00] VITALS: BP 143/90
[2022-01-24] MEDS: normal saline 1000ml 1,000 ML IV SCH (05:10)
[2022-01-24 06:00] VITALS: BP 151/101
--- NOTE | 2022-01-24 06:15 | NUR ---
Patient in room [place] [address]. I have received report from and had the opportunity to ask questions and assume patient care. Addendum: 01/24/22 at 0713 by Romaine Davis RN Patient in room [place] [address]. I have received report from Jacquelin CROUCH and had the opportunity to ask questions and assume patient care.
--- NOTE | 2022-01-24 06:30 | NUR ---
Patient in room [facility]012. I have received report from WILLA Roper and had the opportunity to ask questions and assume patient care.
[2022-01-24 06:44] LABS: BASOPHILS % (AUTO) 1.2 % (0-1); EOSINOPHILS # (AUTO) 0.1 X10'3 (0-0.9); EOSINOPHILS % (AUTO) 2.9 % (0-6); HEMATOCRIT 37.1 % (42.0-52.0); HEMOGLOBIN 12.4 g/dl (14.0-17.9); LYMPHOCYTES # (AUTO) 1.1 X10'3 (1.1-4.8); LYMPHOCYTES % (AUTO) 36.5 % (21-51); MEAN CORPUSCULAR HEMOGLOBIN 33.1 PG (27.0-31.0); MEAN CORPUSCULAR HGB CONC 33.5 g/dL (33.0-36.5); MEAN CORPUSCULAR VOLUME 98.6 FL (78-98); MEAN PLATELET VOLUME 8.2 FL (7.4-10.4); MONOCYTES # (AUTO) 0.4 X10'3 (0-0.9); MONOCYTES % (AUTO) 12.1 % (2-12); NEUTROPHILS # (AUTO) 1.5 X10'3 (1.8-7.7); NEUTROPHILS % (AUTO) 47.3 % (42-75); PLATELET COUNT 209 X10'3 (140-440); RED BLOOD COUNT 3.76 X10'6 (4.70-6.10); RED CELL DISTRIBUTION WIDTH 14.6 % (11.5-14.5); WHITE BLOOD COUNT 3.1 X10'3 (4.5-11.0)
[2022-01-24 06:55] LABS: ALANINE AMINOTRANSFERASE 29 U/L (12-78); ALBUMIN 2.8 G/DL (3.4-5.0); ALBUMIN/GLOBULIN RATIO 0.8 (1.1-1.5); ALKALINE PHOSPHATASE 84 IU/L (46-116); ANION GAP 8 (8-16); ASPARTATE AMINO TRANSFERASE 29 U/L (10-37); BILIRUBIN,TOTAL 0.3 MG/DL (0.1-1.0); BLOOD UREA NITROGEN 4 MG/DL (7-18); BUN/CREATININE RATIO 10.5 (5.4-32.0); CALCIUM 8.3 MG/DL (8.5-10.1); CHLORIDE 111 MMOL/L (99-107); CHOL/HDL RATIO 6.1 (0.00-4.99); CHOLESTEROL 171 MG/DL (0-200); CREATININE 0.38 MG/DL (0.60-1.10); GLUCOSE 89 MG/DL (70-104); HDL CHOLESTEROL 28 MG/DL (35-60); LDL CHOLESTEROL 111 MG/DL (50-100); POTASSIUM 3.9 MMOL/L (3.5-5.1); SODIUM 144 MMOL/L (135-145); TOTAL CARBON DIOXIDE 24.9 MMOL/L (24-32); TOTAL PROTEIN 6.2 G/DL (6.4-8.2); TRIGLYCERIDES 169 MG/DL (20-135); eGFR > 90 ML/MIN
[2022-01-24] MEDS: folic acid 1mg/0.2ml inj IV SCH (09:01)
[2022-01-24] MEDS: docusate sod 100mg capsule PO SCH (09:01)
[2022-01-24] MEDS: nicotine 21mg patch - 24 hr TD SCH (09:03)
[2022-01-24] MEDS: LORazepam 2 mg/ml vial IV PRN ×2 (09:04→16:02)
[2022-01-24] MEDS ORDERED: cyanocobalamin 1,000 mcg/ml inj IM ONE (09:05)
[2022-01-24] MEDS: thiamine 100mg/ml 2ml inj. IV SCH ×2 (09:05→13:22)
[2022-01-24] MEDS: heparin, porcine 5000 units/ml vial SQ SCH (09:05)
[2022-01-24] MEDS: acetaminophen 325mg tablet PO PRN (09:07)
[2022-01-24] MEDS: pantoprazole 40mg Tablet.DR PO SCH (09:12)
[2022-01-24] MEDS ORDERED: LORA-269 PO ×2 (10:45)
[2022-01-24 11:00] VITALS: BP 142/101
[2022-01-24] MEDS: buprenorphine/naloxone 8MG-2MG SUBlingual film SL SCH (11:25)
[2022-01-24 15:00] VITALS: BP 147/102
--- NOTE | 2022-01-24 17:00 | NUR ---
Pt discharged to home from the hospital. Discharge paperwork signed with the assistance of this global technical writer. All questions and concerns answered prior to discharge. PIV and telemetry removed. Personal belongings were returned prior to discharge. Discharge medications were sent to the pt's preferred pharmacy.
[2022-01-24] MEDS ORDERED: QUET-1 PO (17:06)
[2022-01-24] MEDS ORDERED: QUET25TA PO (17:06)
[2022-01-24] MEDS ORDERED: ESCI10TA PO (17:06)
--- NOTE | 2022-01-24 17:15 | NUR ---
[place] documentation: I have reviewed and agree with all interventions, assessments performed and documented by Edna Dunne RN.
[2022-01-27] MEDS ORDERED: folic acid 1mg tablet PO SCH (08:00)
[2022-01-27] MEDS ORDERED: thiamine 100mg tablet PO SCH (08:00)
== END 2022-01-24 17:07 | disposition home or self-care (01) | DRG 48 ==
LOC: ER 22:31 → UNDOADMIN 01-23 00:23 → ED HOLD 01-23 00:23 → PCU 3S 01-23 03:40
PROVIDERS: ADMIT Family Medicine; ATTEND Internal Medicine
DX: G62.9 Polyneuropathy, unspecified (principal); E87.2 Acidosis; F33.2 Major depressive disorder, recurrent severe without psychotic features; E87.1 Hypo-osmolality and hyponatremia; E53.8 Deficiency of other specified B group vitamins; E03.9 Hypothyroidism, unspecified; F10.230 Alcohol dependence with withdrawal, uncomplicated; Y90.0 Blood alcohol level of less than 20 mg/100 ml; G89.4 Chronic pain syndrome; E78.5 Hyperlipidemia, unspecified; R06.02 Shortness of breath; R07.9 Chest pain, unspecified; F41.9 Anxiety disorder, unspecified; I10 Essential (primary) hypertension; Z72.0 Tobacco use; Z79.899 Other long term (current) drug therapy; Z71.6 Tobacco abuse counseling; Z71.41 Alcohol abuse counseling and surveillance of alcoholic; Z56.0 Unemployment, unspecified
CPT/HCPCS: 36415; 71045; 80048; 80053; 80061; 80320; 82550; 82607; 83036; 83605; 83690; 83735; 83880; 83930; 84100; 84443; 84484; 85025; 85379; 85610; 85730; 87081; 93005; 96361; 96374; 99285; G0378; J1644; J2060; J3411; J3420; J3490; J7030

== ENCOUNTER 2022-05-21 10:35 | Emergency (ER) | payer MEDICAID ==
[~2022-05-21] VITALS: Ht 182.9 cm; Wt 100.0 kg
[~2022-05-21 10:35] MED LIST changes: -CLON0.5T4 PO; +ESCI10TA PO; -FLUO10CA PO; -LOP25T PO; -MULT-25 PO; -NICO-631 TD; +QUET-1 PO; +QUET25TA PO; -folic acid tablet PO; -thiamine tablet PO
[2022-05-21 11:29] VITALS: BP 124/86
[2022-05-21] MEDS ORDERED: ondansetron 4mg rapidly disintigrating tab PO ONE (12:20)
[2022-05-21] MEDS ORDERED: chlordiazePOXIDE 25mg capsule PO ONE (12:20)
== END 2022-05-21 12:39 | disposition home or self-care (01) ==
LOC: ER 10:35
DX: F10.20 Alcohol dependence, uncomplicated (principal); Y90.9 Presence of alcohol in blood, level not specified; G89.29 Other chronic pain; Z87.891 Personal history of nicotine dependence
CPT/HCPCS: 99283

== ENCOUNTER 2023-05-03 13:18 | Emergency (ER) | payer MEDICAID ==
[~2023-05-03] VITALS: Ht 182.9 cm; Wt 105.0 kg
[2023-05-03 13:44] VITALS: BP 135/100
[2023-05-03] MEDS ORDERED: BUPR1FIL5 SL ×2 (13:54)
== END 2023-05-03 14:14 | disposition home or self-care (01) ==
LOC: ER 13:19
DX: F32.9 Major depressive disorder, single episode, unspecified (principal); F41.9 Anxiety disorder, unspecified; Z76.0 Encounter for issue of repeat prescription; G89.29 Other chronic pain; F17.200 Nicotine dependence, unspecified, uncomplicated; F10.10 Alcohol abuse, uncomplicated; Z79.899 Other long term (current) drug therapy; Y90.9 Presence of alcohol in blood, level not specified
CPT/HCPCS: 99281

== ENCOUNTER 2023-08-31 13:43 | Emergency (ER) | payer MEDICAID ==
[~2023-08-31] VITALS: Ht 180.3 cm; Wt 102.3 kg
[~2023-08-31 13:43] MED LIST changes: +APIX5TAB3 PO; +BUPR1FIL3 PO; -BUPR1FIL3 SL; -ESCI10TA PO; +FOLI1TAB27 PO; +LORA-268 PO; +LORA-269 PO; +MULT-1085 PO; +PANT40TA54 PO; -QUET-1 PO; -QUET25TA PO; +THIA100T66 PO
[2023-08-31 13:59] VITALS: TEMP 97
--- NOTE | 2023-08-31 14:22 | NUR ---
Dr. Duran at bedside seeing patient
[2023-08-31] MEDS ORDERED: normal saline 1000ml 1,000 ML IV ONE ×2 (14:25→15:00)
[2023-08-31] MEDS ORDERED: LORazepam 2 mg/ml vial IV ONE ×2 (14:25→16:55)
[2023-08-31] MEDS ORDERED: FOLI1TAB27 PO (14:34)
[2023-08-31] MEDS ORDERED: APIX5TAB3 PO (14:34)
[2023-08-31] MEDS ORDERED: PANT-47 PO (14:34)
[2023-08-31] MEDS ORDERED: LORA-268 PO (14:34)
[2023-08-31] MEDS ORDERED: THIA100T66 PO (14:34)
[2023-08-31] MEDS ORDERED: MULT-1085 PO (14:34)
[2023-08-31 14:57] LABS: EOSINOPHILS % (AUTO) 0.5 % (0-6); HEMOGLOBIN 17.6 g/dl (14.0-17.9); LYMPHOCYTES # (AUTO) 0.7 X10'3 (1.1-4.8); LYMPHOCYTES % (AUTO) 13.9 % (21-51); MEAN CORPUSCULAR VOLUME 95.8 FL (78-98)
[2023-08-31 14:58] LABS: BASOPHILS % (AUTO) 0.2 % (0-1); HEMATOCRIT 51.9 % (42.0-52.0); MEAN CORPUSCULAR HEMOGLOBIN 32.5 PG (27.0-31.0); MEAN CORPUSCULAR HGB CONC 33.9 g/dL (33.0-36.5); MEAN PLATELET VOLUME 8.4 FL (7.4-10.4); MONOCYTES # (AUTO) 0.6 X10'3 (0-0.9); NEUTROPHILS # (AUTO) 3.9 X10'3 (1.8-7.7); NEUTROPHILS % (AUTO) 73.4 % (42-75); PLATELET COUNT 62 X10'3 (140-440); RED BLOOD COUNT 5.42 X10'6 (4.70-6.10); RED CELL DISTRIBUTION WIDTH 14.8 % (11.5-14.5); WHITE BLOOD COUNT 5.3 X10'3 (4.5-11.0)
[2023-08-31 15:05] LABS: BILIRUBIN,URINE SMALL (Neg); CLARITY,URINE CLOUDY (Clear); COLOR,URINE YELLOW (Yellow); GLUCOSE, URINE NEGATIVE (Neg); KETONES,URINE NEGATIVE (Neg); LEUKOCYTE ESTERASE ,URINE NEGATIVE (Neg); NITRITES, URINE NEGATIVE (Neg); OCCULT BLOOD,URINE TRACE-INTACT (Neg); PROTEIN,URINE 100 mg/dl (Neg)
[2023-08-31 15:09] LABS: ALANINE AMINOTRANSFERASE 72 U/L (12-78); ALBUMIN 3.5 G/DL (3.4-5.0); ALBUMIN/GLOBULIN RATIO 0.9 (1.1-1.5); ALKALINE PHOSPHATASE 179 IU/L (46-116); ANION GAP 11 (8-16); ASPARTATE AMINO TRANSFERASE 98 U/L (10-37); BILIRUBIN,TOTAL 1.1 MG/DL (0.1-1.0); BLOOD UREA NITROGEN 7 MG/DL (7-18); BUN/CREATININE RATIO 11.3 (10.0-20.0); CALCIUM 8.7 MG/DL (8.5-10.1); CHLORIDE 95 MMOL/L (99-107); CREATININE 0.62 MG/DL (0.60-1.10); GLUCOSE 97 MG/DL (70-104); SODIUM 135 MMOL/L (135-145); TOTAL CARBON DIOXIDE 28.9 MMOL/L (24-32); TOTAL PROTEIN 7.6 G/DL (6.4-8.2); eCRCL 170 ML/MIN; eGFR > 90 ML/MIN
[2023-08-31 15:11] LABS: URINE AMPHETAMINE SCREEN POSITIVE (Neg); URINE BARBITUATE SCREEN NEGATIVE (Neg); URINE BENZODIAZEPINES SCREEN POSITIVE (Neg); URINE CANNABINOID SCREEN NEGATIVE (Neg); URINE COCAINE SCREEN NEGATIVE (Neg); URINE OPIATE SCREEN NEGATIVE (Neg); URINE PHENCYCLIDINE SCREEN NEGATIVE (Neg)
[2023-08-31 15:12] LABS: LIPASE 46 U/L (16-77)
[2023-08-31 15:14] LABS: POTASSIUM 2.9 MMOL/L (3.5-5.1)
[2023-08-31 15:15] LABS: UA COLLECTION TYPE CLN CATCH MIDSTREAM
[2023-08-31 15:16] LABS: MUCUS STRANDS MODERATE /LPF (Neg); SQUAMOUS EPITHELIAL CELL,UR FEW /LPF (FEW)
[2023-08-31 15:17] LABS: BACTERIA,URINE FEW /HPF (Neg); RBC,URINE 0-2 /HPF (0-2); WBC,URINE 0-4 /HPF (0-4)
[2023-08-31] MEDS ORDERED: POTASSIUM BICARB 20meq eff tab 20 MEQ TABLET.EFF PO ONE (15:30)
[2023-08-31 17:51] VITALS: O2SAT 98
[2023-08-31 18:15] VITALS: BP 121/79; PULSE 90; RESP 15
[2023-08-31] MEDS ORDERED: LORA-269 PO (18:24)
[2023-08-31] MEDS ORDERED: ONDA4TAB12 PO (18:24)
== END 2023-08-31 18:44 | disposition home or self-care (01) ==
LOC: ER 13:43
DX: F10.931 Alcohol use, unspecified with withdrawal delirium (principal); F15.10 Other stimulant abuse, uncomplicated; E87.6 Hypokalemia; K29.70 Gastritis, unspecified, without bleeding; E86.0 Dehydration; G89.29 Other chronic pain; F41.9 Anxiety disorder, unspecified; Z72.89 Other problems related to lifestyle; Z87.19 Personal history of other diseases of the digestive system; Z79.899 Other long term (current) drug therapy; Y90.9 Presence of alcohol in blood, level not specified
CPT/HCPCS: 36415; 76700; 80053; 80305; 81001; 83690; 83735; 85025; 93005; 96361; 96374; 96376; 99285; J2060; J7030

== ENCOUNTER 2023-12-19 15:40 | Inpatient (IN) | payer MEDICAID ==
[~2023-12-19] VITALS: Ht 182.9 cm; Wt 105.4 kg
[~2023-12-19 15:40] MED LIST changes: +ONDA4TAB12 PO; +PANT-47 PO; -PANT40TA54 PO
[2023-12-19 16:51] LABS: BASOPHILS % (AUTO) 0.1 % (0-1); EOSINOPHILS % (AUTO) 0.2 % (0-6); HEMATOCRIT 51.8 % (42.0-52.0); LYMPHOCYTES # (AUTO) 1.1 X10'3 (1.1-4.8); LYMPHOCYTES % (AUTO) 14.6 % (21-51); MEAN CORPUSCULAR VOLUME 97.1 FL (78-98); MEAN PLATELET VOLUME 7.7 FL (7.4-10.4); MONOCYTES # (AUTO) 0.7 X10'3 (0-0.9); MONOCYTES % (AUTO) 8.5 % (2-12); NEUTROPHILS # (AUTO) 5.8 X10'3 (1.8-7.7); NEUTROPHILS % (AUTO) 76.6 % (42-75); PLATELET COUNT 146 X10'3 (140-440); RED BLOOD COUNT 5.33 X10'6 (4.70-6.10); RED CELL DISTRIBUTION WIDTH 16.9 % (11.5-14.5); WHITE BLOOD COUNT 7.6 X10'3 (4.5-11.0)
[2023-12-19 16:54] LABS: HEMOGLOBIN 18.1 g/dl (14.0-17.9)
[2023-12-19] MEDS: LORazepam 2 mg/ml vial IV ONE ×2 (16:58→17:56)
[2023-12-19] MEDS: ondansetron/PF 4mg/2ml inj IV ONE (17:00)
[2023-12-19] MEDS: morphine 4 MG/ML inj SYRINge IV ONE ×4 (17:00→19:59)
[2023-12-19] MEDS: normal saline 1000ML IV soln IVB ONE (17:03)
[2023-12-19 17:04] LABS: ALANINE AMINOTRANSFERASE 73 U/L (12-78); ALBUMIN 4.2 G/DL (3.4-5.0); ALKALINE PHOSPHATASE 148 IU/L (46-116); ANION GAP 14 (8-16); ASPARTATE AMINO TRANSFERASE 60 U/L (10-37); BILIRUBIN,TOTAL 0.9 MG/DL (0.1-1.0); BLOOD UREA NITROGEN 4 MG/DL (7-18); BUN/CREATININE RATIO 6.3 (10.0-20.0); C-REACTIVE PROTEIN 0.56 MG/DL (0.0-0.5); CALCIUM 8.8 MG/DL (8.5-10.1); CHLORIDE 95 MMOL/L (99-107); CREATININE 0.63 MG/DL (0.60-1.10); GLUCOSE 130 MG/DL (70-104); PRO BRAIN NATRIURETIC PEPTIDE 34 PG/ML (0-125); SODIUM 137 MMOL/L (135-145); TOTAL CARBON DIOXIDE 27.9 MMOL/L (24-32); TOTAL PROTEIN 8.6 G/DL (6.4-8.2); eCRCL 173 ML/MIN; eGFR > 90 ML/MIN
[2023-12-19] MEDS ORDERED: iohexol 300mg/ml 100ml inj. ONE (17:07)
[2023-12-19 17:15] LABS: POTASSIUM 2.8 MMOL/L (3.5-5.1)
[2023-12-19 17:32] LABS: LIPASE > 375 U/L (16-77)
[2023-12-19] MEDS: potassium Cl 40MEQ/1/2NS 520ml 520 ML IV SCH (17:44)
[2023-12-19] MEDS ORDERED: magnesium 2GM in 50ml NS 50 ML IV PRN (19:45)
[2023-12-19] MEDS ORDERED: ondansetron/PF 4mg/2ml inj IV PRN (19:45)
[2023-12-19] MEDS ORDERED: mag hydrox/Alum hydrox/simeth 30ml oral suspension PO PRN (19:45)
[2023-12-19] MEDS ORDERED: magnesium 4gm in 100ml NS 100 ML IV PRN (19:45)
[2023-12-19] MEDS ORDERED: metoclopramide 5 mg/ml inj IV PRN (19:45)
[2023-12-19] MEDS ORDERED: magnesium hydroxide 30ml (MOM) UD suspension PO PRN (19:45)
[2023-12-19] MEDS ORDERED: acetaminophen 325mg tablet PO PRN (19:45)
[2023-12-19] MEDS ORDERED: potassium Cl 20 mEq SR tablet PO PRN (19:45)
[2023-12-19] MEDS ORDERED: magnesium Cl slow-release 64mg tablet PO PRN (19:45)
[2023-12-19] MEDS ORDERED: dextrose 50%-water 50ml dispensing syringe IV PRN (19:45)
[2023-12-19] MEDS: docusate sod 100mg capsule PO SCH (20:00)
[2023-12-19] MEDS: K and/or MAG REPLACEMENT MC SCH (20:00)
[2023-12-19] MEDS: normal saline 1000ml 1,000 ML IV ONE (20:03)
[2023-12-19 20:06] LABS: ETHANOL 120 MG/DL (<10)
[2023-12-19 20:18] LABS: MAGNESIUM 1.9 MG/DL (1.5-2.4); PHOSPHORUS 3.4 MG/DL (2.3-4.5)
[2023-12-19] MEDS: LORazepam 2 mg/ml vial IV PRN ×2 (20:21→22:43)
[2023-12-19 20:22] LABS: HEMOGLOBIN A1C 5.1 % (4.5-6.2)
[2023-12-19] MEDS: normal saline 1000ml 1,000 ML IV SCH (20:25)
[2023-12-19] MEDS: HYDROmorphone inj. 0.5 MG/0.5 ML DISP.SYRIN IV PRN (20:37)
[2023-12-19] MEDS: nicotine 14mg patch - 24hr TD ONE (20:59)
[2023-12-19] MEDS: thiamine 100mg/ml 2ml inj. IV SCH (21:35)
[2023-12-19] MEDS: acetaminophen 325mg tablet PO PRN (22:16)
[2023-12-20] MEDS: diazepam inj 5 MG/ML inj. IV PRN (01:09)
[2023-12-20 01:11] LABS: URINE AMPHETAMINE SCREEN NEGATIVE (Neg); URINE BARBITUATE SCREEN NEGATIVE (Neg); URINE BENZODIAZEPINES SCREEN NEGATIVE (Neg); URINE CANNABINOID SCREEN NEGATIVE (Neg); URINE COCAINE SCREEN NEGATIVE (Neg); URINE METHADONE SCREEN NEGATIVE (Neg); URINE OPIATE SCREEN POSITIVE (Neg); URINE PHENCYCLIDINE SCREEN NEGATIVE (Neg)
[2023-12-20 01:21] LABS: BILIRUBIN,URINE NEGATIVE (Neg); CLARITY,URINE CLEAR (Clear); COLOR,URINE AMBER (Yellow); GLUCOSE, URINE NEGATIVE (Neg); KETONES,URINE NEGATIVE (Neg); LEUKOCYTE ESTERASE ,URINE NEGATIVE (Neg); NITRITES, URINE NEGATIVE (Neg); OCCULT BLOOD,URINE TRACE-INTACT (Neg); PROTEIN,URINE 30 mg/dl (Neg); UA COLLECTION TYPE URINAL; UROBILINOGEN,URINE 0.2 E.U/dL (0.2-1.0)
[2023-12-20 01:54] LABS: BACTERIA,URINE NONE SEEN /HPF (Neg); MUCUS STRANDS FEW /LPF (Neg); RBC,URINE 0-2 /HPF (0-2); SQUAMOUS EPITHELIAL CELL,UR NONE SEEN /LPF (FEW); WBC,URINE 0-4 /HPF (0-4)
[2023-12-20] MEDS: haloperidol lactate 5mg/ml inj IM PRN (03:07)
[2023-12-20 03:17] LABS: BASOPHILS % (AUTO) 0.2 % (0-1); EOSINOPHILS % (AUTO) 0.6 % (0-6); HEMATOCRIT 46.8 % (42.0-52.0); HEMOGLOBIN 16.1 g/dl (14.0-17.9); LYMPHOCYTES # (AUTO) 0.9 X10'3 (1.1-4.8); LYMPHOCYTES % (AUTO) 11.4 % (21-51); MEAN CORPUSCULAR HEMOGLOBIN 33.9 PG (27.0-31.0); MEAN CORPUSCULAR HGB CONC 34.5 g/dL (33.0-36.5); MEAN CORPUSCULAR VOLUME 98.4 FL (78-98); MEAN PLATELET VOLUME 7.7 FL (7.4-10.4); MONOCYTES # (AUTO) 0.7 X10'3 (0-0.9); MONOCYTES % (AUTO) 9.2 % (2-12); NEUTROPHILS % (AUTO) 78.6 % (42-75); PLATELET COUNT 110 X10'3 (140-440); RED BLOOD COUNT 4.76 X10'6 (4.70-6.10); RED CELL DISTRIBUTION WIDTH 16.8 % (11.5-14.5); WHITE BLOOD COUNT 7.7 X10'3 (4.5-11.0)
[2023-12-20 03:23] LABS: ALANINE AMINOTRANSFERASE 67 U/L (12-78); ALBUMIN 3.5 G/DL (3.4-5.0); ALBUMIN/GLOBULIN RATIO 0.9 (1.1-1.5); ALKALINE PHOSPHATASE 129 IU/L (46-116); ANION GAP 5 (8-16); ASPARTATE AMINO TRANSFERASE 61 U/L (10-37); BILIRUBIN,TOTAL 1.3 MG/DL (0.1-1.0); BLOOD UREA NITROGEN 4 MG/DL (7-18); BUN/CREATININE RATIO 7.5 (10.0-20.0); CALCIUM 7.9 MG/DL (8.5-10.1); CHLORIDE 100 MMOL/L (99-107); CHOL/HDL RATIO 3.1 (0.00-4.99); CHOLESTEROL 199 MG/DL (0-200); CREATININE 0.53 MG/DL (0.60-1.10); GLUCOSE 105 MG/DL (70-104); HDL CHOLESTEROL 65 MG/DL (35-60); LDL CHOLESTEROL 110 MG/DL (50-100); POTASSIUM 3.8 MMOL/L (3.5-5.1); SODIUM 138 MMOL/L (135-145); TOTAL PROTEIN 7.2 G/DL (6.4-8.2); TRIGLYCERIDES 65 MG/DL (20-135); eCRCL 205 ML/MIN; eGFR > 90 ML/MIN
[2023-12-20] MEDS ORDERED: DEXMEDETOMIDINE IN 0.9 % NACL 50 ML IV SCH (03:55)
[2023-12-20] MEDS: DEXMEDETOMIDINE 400MCG in NORMAL SALINE 100ml IV SCH (04:14)
[2023-12-20] MEDS: enoxaparin 40mg/0.4ml syringe SUBCUT SCH (07:30)
[2023-12-20] MEDS: folic acid 1mg/0.2ml inj IV SCH (07:30)
[2023-12-20] MEDS: pantoprazole 40mg Tablet.DR PO SCH (07:31)
[2023-12-20] MEDS: chlordiazePOXIDE 25mg capsule PO SCH (14:21)
[2023-12-20] MEDS: HYDROmorphone/PF 0.2 MG/ML SYRINGE IV PRN (16:31)
[2023-12-20 22:00] VITALS: BP 116/82; PULSE 91; RESP 18; TEMP 98.7; O2SAT 96
[2023-12-21] VITALS (9 sets, daily range): BP systolic 90–172; BP diastolic 56–114; PULSE 86–110; RESP 14–20; TEMP 97.6–99.1; O2SAT 93–97
[2023-12-21 06:22] LABS: ALANINE AMINOTRANSFERASE 53 U/L (12-78); ALBUMIN 3.7 G/DL (3.4-5.0); ALBUMIN/GLOBULIN RATIO 0.9 (1.1-1.5); ALKALINE PHOSPHATASE 136 IU/L (46-116); ANION GAP 11 (8-16); ASPARTATE AMINO TRANSFERASE 44 U/L (10-37); BILIRUBIN,TOTAL 1.9 MG/DL (0.1-1.0); BLOOD UREA NITROGEN 5 MG/DL (7-18); BUN/CREATININE RATIO 9.3 (10.0-20.0); CALCIUM 8.9 MG/DL (8.5-10.1); CHLORIDE 96 MMOL/L (99-107); CREATININE 0.54 MG/DL (0.60-1.10); GLUCOSE 89 MG/DL (70-104); SODIUM 137 MMOL/L (135-145); TOTAL PROTEIN 7.7 G/DL (6.4-8.2); eCRCL 202 ML/MIN; eGFR > 90 ML/MIN
[2023-12-21 06:39] LABS: BASOPHILS % (AUTO) 0.4 % (0-1); EOSINOPHILS # (AUTO) 0.1 X10'3 (0-0.9); EOSINOPHILS % (AUTO) 1.1 % (0-6); HEMATOCRIT 47.9 % (42.0-52.0); HEMOGLOBIN 16.8 g/dl (14.0-17.9); LYMPHOCYTES # (AUTO) 0.7 X10'3 (1.1-4.8); LYMPHOCYTES % (AUTO) 10.8 % (21-51); MEAN CORPUSCULAR HEMOGLOBIN 34.1 PG (27.0-31.0); MEAN CORPUSCULAR VOLUME 97.4 FL (78-98); MEAN PLATELET VOLUME 8.2 FL (7.4-10.4); MONOCYTES # (AUTO) 0.6 X10'3 (0-0.9); MONOCYTES % (AUTO) 9.2 % (2-12); NEUTROPHILS # (AUTO) 5.2 X10'3 (1.8-7.7); NEUTROPHILS % (AUTO) 78.5 % (42-75); PLATELET COUNT 103 X10'3 (140-440); RED BLOOD COUNT 4.92 X10'6 (4.70-6.10); RED CELL DISTRIBUTION WIDTH 16.7 % (11.5-14.5); WHITE BLOOD COUNT 6.6 X10'3 (4.5-11.0)
[2023-12-21] MEDS: potassium Cl 40MEQ/1/2NS 520ml 520 ML IV PRN (12:36)
[2023-12-21] MEDS ORDERED: hydrALAZINE 20mg/ml inj. IV PRN (15:55)
[2023-12-22 02:00] VITALS: BP 169/106; PULSE 90; RESP 20; TEMP 98.2; O2SAT 92
[2023-12-22 07:00] VITALS: BP 174/115; PULSE 90; RESP 22; TEMP 98.9; O2SAT 97
[2023-12-22 07:02] LABS: ALANINE AMINOTRANSFERASE 46 U/L (12-78); ALBUMIN 3.5 G/DL (3.4-5.0); ALBUMIN/GLOBULIN RATIO 0.8 (1.1-1.5); ALKALINE PHOSPHATASE 129 IU/L (46-116); ANION GAP 15 (8-16); ASPARTATE AMINO TRANSFERASE 44 U/L (10-37); BILIRUBIN,TOTAL 1.9 MG/DL (0.1-1.0); BLOOD UREA NITROGEN 6 MG/DL (7-18); CALCIUM 8.9 MG/DL (8.5-10.1); CHLORIDE 95 MMOL/L (99-107); GLUCOSE 111 MG/DL (70-104); LIPASE 299 U/L (16-77); POTASSIUM 3.2 MMOL/L (3.5-5.1); SODIUM 136 MMOL/L (135-145); TOTAL CARBON DIOXIDE 26.2 MMOL/L (24-32); TOTAL PROTEIN 7.7 G/DL (6.4-8.2); eCRCL 218 ML/MIN; eGFR > 90 ML/MIN
[2023-12-22 07:33] LABS: BASOPHILS % (AUTO) 0.3 % (0-1); EOSINOPHILS # (AUTO) 0.1 X10'3 (0-0.9); EOSINOPHILS % (AUTO) 1.2 % (0-6); HEMATOCRIT 48.1 % (42.0-52.0); HEMOGLOBIN 16.4 g/dl (14.0-17.9); LYMPHOCYTES # (AUTO) 0.8 X10'3 (1.1-4.8); MEAN CORPUSCULAR HEMOGLOBIN 33.9 PG (27.0-31.0); MEAN CORPUSCULAR HGB CONC 34.2 g/dL (33.0-36.5); MEAN CORPUSCULAR VOLUME 99.2 FL (78-98); MONOCYTES # (AUTO) 0.7 X10'3 (0-0.9); MONOCYTES % (AUTO) 11.4 % (2-12); NEUTROPHILS # (AUTO) 4.8 X10'3 (1.8-7.7); NEUTROPHILS % (AUTO) 75.1 % (42-75); PLATELET COUNT 98 X10'3 (140-440); RED BLOOD COUNT 4.85 X10'6 (4.70-6.10); RED CELL DISTRIBUTION WIDTH 16.5 % (11.5-14.5); WHITE BLOOD COUNT 6.3 X10'3 (4.5-11.0)
[2023-12-22] MEDS: ketorolac trometh. 30mg/ml inj. IV ONE (08:34)
[2023-12-22] MEDS: potassium Cl 20 mEq SR tablet PO PRN (10:23)
[2023-12-22 11:00] VITALS: BP 155/128; PULSE 103; RESP 13; TEMP 97.9; O2SAT 97
[2023-12-22] MEDS ORDERED: CHLO25CA10 PO (12:43)
[2023-12-23] MEDS ORDERED: CHLO25CA10 PO (16:59)
[2023-12-24] MEDS ORDERED: thiamine 100mg tablet PO SCH (08:00)
[2023-12-24] MEDS ORDERED: folic acid 1mg tablet PO SCH (08:00)
== END 2023-12-22 13:03 | disposition home or self-care (01) | DRG 282 ==
LOC: ER 15:43 → ED HOLD 19:49 → PCU 3S 12-20 20:45
PROVIDERS: ADMIT Family Medicine; ATTEND Family Medicine
PROC: BW211ZZ Computerized Tomography (CT Scan) of Abdomen and Pelvis using Low Osmolar Contrast (ICD-10-PCS; principal; 2023-12-19)
DX: K85.20 Alcohol induced acute pancreatitis without necrosis or infection (principal); D69.6 Thrombocytopenia, unspecified; K73.9 Chronic hepatitis, unspecified; E66.9 Obesity, unspecified; E87.6 Hypokalemia; F10.239 Alcohol dependence with withdrawal, unspecified; F32.A Depression, unspecified; E78.5 Hyperlipidemia, unspecified; I10 Essential (primary) hypertension; K21.9 Gastro-esophageal reflux disease without esophagitis; F41.9 Anxiety disorder, unspecified; G89.29 Other chronic pain; Z79.01 Long term (current) use of anticoagulants; Z79.899 Other long term (current) drug therapy; Z68.31 Body mass index [BMI] 31.0-31.9, adult
CPT/HCPCS: 36415; 71045; 74177; 80053; 80061; 80305; 80320; 81001; 82948; 83036; 83605; 83690; 83735; 83880; 84100; 84145; 84484; 85025; 86140; 87040; 87081; 99285; A4615; G0378; J1170; J1630; J1650; J1885; J2060; J2270; J2405; J3360; J3411; J3480; J3490; J7030; Q9967

== ENCOUNTER 2024-07-09 23:14 | Inpatient (IN) | payer MEDICAID ==
[~2024-07-09] VITALS: Ht 180.3 cm; Wt 102.3 kg
[~2024-07-09 23:14] MED LIST changes: +CHLO25CA10 PO; -LORA-269 PO; +ONDA-243 PO; -ONDA4TAB12 PO
[2024-07-09] MEDS ORDERED: phenobarbital inj 260 MG in normal saline 100ml IV soln 98 ML IV SCH (23:20)
[2024-07-09] MEDS: phenobarbital sod 130mg/ml inj. IV ONE (23:37)
[2024-07-09 23:48] LABS: HEMOGLOBIN 15.9 g/dl (14.0-17.9)
[2024-07-09 23:50] LABS: BASOPHILS # (AUTO) 0.1 X10'3 (0-0.2); BASOPHILS % (AUTO) 0.5 % (0-1); EOSINOPHILS # (AUTO) 0.1 X10'3 (0-0.9); EOSINOPHILS % (AUTO) 0.7 % (0-6); LYMPHOCYTES # (AUTO) 1.6 X10'3 (1.1-4.8); LYMPHOCYTES % (AUTO) 12.7 % (21-51); MEAN CORPUSCULAR HEMOGLOBIN 36.2 PG (27.0-31.0); MEAN CORPUSCULAR HGB CONC 35.4 g/dL (33.0-36.5); MEAN CORPUSCULAR VOLUME 102.4 FL (78-98); MEAN PLATELET VOLUME 8.3 FL (7.4-10.4); MONOCYTES % (AUTO) 7.9 % (2-12); NEUTROPHILS # (AUTO) 9.6 X10'3 (1.8-7.7); NEUTROPHILS % (AUTO) 78.2 % (42-75); RED CELL DISTRIBUTION WIDTH 15.7 % (11.5-14.5); WHITE BLOOD COUNT 12.3 X10'3 (4.5-11.0)
[2024-07-10] VITALS (7 sets, daily range): BP systolic 132–145; BP diastolic 86–102; PULSE 96–110; RESP 15–18; TEMP 97.7–98.9; O2SAT 96–98
[2024-07-10] MEDS: LORazepam 2 mg/ml vial IV ONE (00:05)
[2024-07-10 00:13] LABS: ANION GAP 17 (8-16); BLOOD UREA NITROGEN 2 MG/DL (7-18); CHLORIDE 92 MMOL/L (99-107); CREATININE 0.62 MG/DL (0.60-1.10); GLUCOSE 136 MG/DL (70-104); SODIUM 139 MMOL/L (135-145); TOTAL CARBON DIOXIDE 30.2 MMOL/L (24-32)
[2024-07-10 00:14] LABS: BUN/CREATININE RATIO 3.2 (10.0-20.0); CALCIUM 8.2 MG/DL (8.5-10.1); CREATINE KINASE 93 U/L (39-308); ETHANOL 134 MG/DL (<10); LIPASE 67 U/L (16-77); eCRCL 169 ML/MIN; eGFR > 90 ML/MIN
[2024-07-10 00:34] LABS: BILIRUBIN,URINE MODERATE (Neg); CLARITY,URINE CLEAR (Clear); COLOR,URINE YELLOW (Yellow); GLUCOSE, URINE 100 mg/dl (Neg); KETONES,URINE TRACE mg/dl (Neg); LEUKOCYTE ESTERASE ,URINE NEGATIVE (Neg); NITRITES, URINE NEGATIVE (Neg); OCCULT BLOOD,URINE NEGATIVE (Neg); PH,URINE 6.5 (4.8-8.0); PROTEIN,URINE 30 mg/dl (Neg)
[2024-07-10 00:40] LABS: PLATELET COUNT 178 X10'3 (140-440)
[2024-07-10 00:49] LABS: ALANINE AMINOTRANSFERASE 50 U/L (12-78); ALBUMIN 2.9 G/DL (3.4-5.0); ALBUMIN/GLOBULIN RATIO 0.6 (1.1-1.5); ALKALINE PHOSPHATASE 258 IU/L (46-116); ASPARTATE AMINO TRANSFERASE 88 U/L (10-37); BILIRUBIN,TOTAL 0.7 MG/DL (0.1-1.0); POTASSIUM 2.3 MMOL/L (3.5-5.1); TOTAL PROTEIN 7.7 G/DL (6.4-8.2)
[2024-07-10 00:49] LABS: URINE AMPHETAMINE SCREEN NEGATIVE (Neg); URINE BARBITUATE SCREEN POSITIVE (Neg); URINE BENZODIAZEPINES SCREEN POSITIVE (Neg); URINE CANNABINOID SCREEN NEGATIVE (Neg); URINE COCAINE SCREEN NEGATIVE (Neg); URINE METHADONE SCREEN NEGATIVE (Neg); URINE OPIATE SCREEN NEGATIVE (Neg); URINE PHENCYCLIDINE SCREEN NEGATIVE (Neg)
[2024-07-10] MEDS ORDERED: potassium Cl 40MEQ/1/2NS 520ml 520 ML IV PRN (00:55)
[2024-07-10] MEDS ORDERED: magnesium sulf-water 4G/100mL 100 ML IV PRN ×2 (00:55→03:00)
[2024-07-10] MEDS ORDERED: magnesium Cl slow-release 64mg tablet PO PRN (00:55)
[2024-07-10] MEDS ORDERED: magnesium sulf-water 2g/50mL 50 ML IV PRN (00:55)
[2024-07-10 01:07] LABS: UA COLLECTION TYPE VOIDED
[2024-07-10 01:09] LABS: SQUAMOUS EPITHELIAL CELL,UR MODERATE /LPF (FEW)
[2024-07-10 01:10] LABS: MUCUS STRANDS MODERATE /LPF (Neg); RBC,URINE 0-2 /HPF (0-2); WBC,URINE 0-4 /HPF (0-4)
[2024-07-10 01:11] LABS: BACTERIA,URINE FEW /HPF (Neg); TRANSITIONAL EPI CELLS,URINE FEW /HPF
[2024-07-10] MEDS: potassium Cl 20 mEq SR tablet PO PRN ×2 (01:41→01:42)
[2024-07-10] MEDS: phenobarbital sod 130mg/ml inj. IV ONE (02:10)
[2024-07-10] MEDS ORDERED: magnesium hydroxide 30ml (MOM) UD suspension PO PRN (03:00)
[2024-07-10] MEDS ORDERED: dicyclomine 10 MG capsule PO PRN (03:00)
[2024-07-10] MEDS ORDERED: haloperidol lactate 5mg/ml inj IM PRN (03:00)
[2024-07-10] MEDS ORDERED: mag hydrox/Alum hydrox/simeth 30ml oral suspension PO PRN ×2 (03:00)
[2024-07-10] MEDS ORDERED: ondansetron/PF 4mg/2ml inj IV PRN (03:00)
[2024-07-10] MEDS: ringers solution, lacted 1,000 ML IV ONE (03:10)
[2024-07-10] MEDS: normal saline 1000ml 1,000 ML IV SCH (03:23)
[2024-07-10] MEDS: LORazepam 2 mg/ml vial IV PRN ×2 (03:23→08:49)
--- NOTE | 2024-07-10 03:40 | NUR ---
PT BACK FROM CT SCAN
[2024-07-10 03:47] LABS: INR 1.3 INR; PROTHROMBIN TIME 13.8 SECONDS (9.0-12.0)
[2024-07-10 03:51] LABS: POTASSIUM 2.4 MMOL/L (3.5-5.1)
[2024-07-10 03:53] LABS: MAGNESIUM 0.8 MG/DL (1.5-2.4)
[2024-07-10 03:55] LABS: HEMOGLOBIN A1C 5.3 % (4.5-6.2)
[2024-07-10] MEDS: magnesium sulf-water 2g/50mL 50 ML IV PRN (04:25)
[2024-07-10] MEDS: pantoprazole 40 MG vial IV SCH (05:39)
[2024-07-10] MEDS: folic acid 1mg/0.2ml inj IV SCH (08:00)
[2024-07-10] MEDS ORDERED: K and/or MAG REPLACEMENT MC SCH (08:00)
[2024-07-10] MEDS: nicotine 14mg patch - 24hr TD SCH (08:20)
[2024-07-10] MEDS: multivitamins, therapeutics tablet PO SCH (08:20)
[2024-07-10] MEDS: thiamine 100mg/ml 2ml inj. IV SCH (08:20)
[2024-07-10] MEDS: potassium Cl 40MEQ/1/2NS 520ml 520 ML IV PRN (08:21)
[2024-07-10] MEDS: K and/or MAG REPLACEMENT MC SCH (08:22)
[2024-07-10] MEDS ORDERED: ipratropium/albuterol 3ml nebule NEB PRN (11:50)
[2024-07-10] MEDS: morphine 4 MG/ML inj SYRINge IV PRN (13:37)
[2024-07-10] MEDS: magnesium sulf-water 2g/50mL 50 ML IV ONE (16:19)
[2024-07-10] MEDS: enoxaparin 40mg/0.4ml syringe SQ SCH (19:17)
[2024-07-11] VITALS (7 sets, daily range): BP systolic 122–139; BP diastolic 81–97; PULSE 92–106; RESP 16–23; TEMP 97.3–98.5; O2SAT 96–100
--- NOTE | 2024-07-11 04:22 | NUR ---
Notified physician that 24 hour telemetry monitoring ends @ 0500. Physician ordered to continue telemetry monitoring and order placed.
[2024-07-11 07:02] LABS: BASOPHILS % (AUTO) 0.4 % (0-1); EOSINOPHILS # (AUTO) 0.1 X10'3 (0-0.9); EOSINOPHILS % (AUTO) 2.5 % (0-6); HEMATOCRIT 37.9 % (42.0-52.0); HEMOGLOBIN 13.1 g/dl (14.0-17.9); LYMPHOCYTES # (AUTO) 1.1 X10'3 (1.1-4.8); LYMPHOCYTES % (AUTO) 20.3 % (21-51); MEAN CORPUSCULAR HEMOGLOBIN 35.6 PG (27.0-31.0); MEAN CORPUSCULAR HGB CONC 34.5 g/dL (33.0-36.5); MEAN PLATELET VOLUME 8.6 FL (7.4-10.4); MONOCYTES # (AUTO) 0.6 X10'3 (0-0.9); MONOCYTES % (AUTO) 10.7 % (2-12); NEUTROPHILS # (AUTO) 3.7 X10'3 (1.8-7.7); NEUTROPHILS % (AUTO) 66.1 % (42-75); PLATELET COUNT 141 X10'3 (140-440); RED BLOOD COUNT 3.68 X10'6 (4.70-6.10); RED CELL DISTRIBUTION WIDTH 15.4 % (11.5-14.5); WHITE BLOOD COUNT 5.6 X10'3 (4.5-11.0)
[2024-07-11 07:20] LABS: ALANINE AMINOTRANSFERASE 36 U/L (12-78); ALBUMIN 2.2 G/DL (3.4-5.0); ALBUMIN/GLOBULIN RATIO 0.6 (1.1-1.5); ALKALINE PHOSPHATASE 214 IU/L (46-116); ANION GAP 9 (8-16); ASPARTATE AMINO TRANSFERASE 76 U/L (10-37); BILIRUBIN,TOTAL 1.1 MG/DL (0.1-1.0); BLOOD UREA NITROGEN 3 MG/DL (7-18); BUN/CREATININE RATIO 6.7 (10.0-20.0); CALCIUM 6.9 MG/DL (8.5-10.1); CHLORIDE 99 MMOL/L (99-107); CHOL/HDL RATIO 6.9 (0.00-4.99); CHOLESTEROL 125 MG/DL (0-200); CREATININE 0.45 MG/DL (0.60-1.10); GLUCOSE 95 MG/DL (70-104); HDL CHOLESTEROL 18 MG/DL (35-60); LDL CHOLESTEROL 64 MG/DL (50-100); MAGNESIUM 1.4 MG/DL (1.5-2.4); PHOSPHORUS 2.7 MG/DL (2.3-4.5); SODIUM 140 MMOL/L (135-145); TOTAL CARBON DIOXIDE 32.4 MMOL/L (24-32); TOTAL PROTEIN 5.8 G/DL (6.4-8.2); TRIGLYCERIDES 314 MG/DL (20-135); eCRCL 232 ML/MIN; eGFR > 90 ML/MIN
[2024-07-11 07:27] LABS: POTASSIUM 2.9 MMOL/L (3.5-5.1)
[2024-07-11] MEDS: potassium Cl 20 mEq SR tablet PO PRN (19:12)
[2024-07-12] VITALS (9 sets, daily range): BP systolic 116–155; BP diastolic 82–107; PULSE 83–99; RESP 16–24; TEMP 97.2–98.1; O2SAT 96–99
[2024-07-12] MEDS: LORazepam 2 mg/ml vial IV PRN (04:34)
[2024-07-12 08:29] LABS: ALANINE AMINOTRANSFERASE 34 U/L (12-78); ALBUMIN 2.3 G/DL (3.4-5.0); ALBUMIN/GLOBULIN RATIO 0.6 (1.1-1.5); ALKALINE PHOSPHATASE 205 IU/L (46-116); ANION GAP 7 (8-16); ASPARTATE AMINO TRANSFERASE 69 U/L (10-37); BLOOD UREA NITROGEN 2 MG/DL (7-18); CALCIUM 7.4 MG/DL (8.5-10.1); CHLORIDE 104 MMOL/L (99-107); GLUCOSE 87 MG/DL (70-104); MAGNESIUM 1.2 MG/DL (1.5-2.4); PHOSPHORUS 2.7 MG/DL (2.3-4.5); POTASSIUM 3.3 MMOL/L (3.5-5.1); SODIUM 139 MMOL/L (135-145); TOTAL CARBON DIOXIDE 28.1 MMOL/L (24-32); TOTAL PROTEIN 6.2 G/DL (6.4-8.2); eCRCL 261 ML/MIN; eGFR > 90 ML/MIN
[2024-07-12 08:41] LABS: BASOPHILS % (AUTO) 0.5 % (0-1); EOSINOPHILS # (AUTO) 0.1 X10'3 (0-0.9); EOSINOPHILS % (AUTO) 2.1 % (0-6); HEMATOCRIT 38.8 % (42.0-52.0); HEMOGLOBIN 13.3 g/dl (14.0-17.9); LYMPHOCYTES # (AUTO) 1.2 X10'3 (1.1-4.8); LYMPHOCYTES % (AUTO) 21.4 % (21-51); MEAN CORPUSCULAR HEMOGLOBIN 35.1 PG (27.0-31.0); MEAN CORPUSCULAR HGB CONC 34.2 g/dL (33.0-36.5); MEAN CORPUSCULAR VOLUME 102.7 FL (78-98); MEAN PLATELET VOLUME 8.4 FL (7.4-10.4); MONOCYTES # (AUTO) 0.5 X10'3 (0-0.9); MONOCYTES % (AUTO) 9.2 % (2-12); NEUTROPHILS # (AUTO) 3.9 X10'3 (1.8-7.7); NEUTROPHILS % (AUTO) 66.8 % (42-75); PLATELET COUNT 141 X10'3 (140-440); RED BLOOD COUNT 3.78 X10'6 (4.70-6.10); RED CELL DISTRIBUTION WIDTH 15.8 % (11.5-14.5); WHITE BLOOD COUNT 5.8 X10'3 (4.5-11.0)
[2024-07-12] MEDS: potassium Cl 20 mEq SR tablet PO PRN (09:44)
[2024-07-12] MEDS: magnesium Cl slow-release 64mg tablet PO PRN (09:45)
[2024-07-12] MEDS: pantoprazole 40mg Tablet.DR PO SCH (14:06)
[2024-07-12] MEDS: thiamine 100mg tablet PO SCH (15:44)
[2024-07-12] MEDS: acetaminophen 325mg tablet PO PRN (19:24)
[2024-07-13 02:00] VITALS: BP 130/94; PULSE 89; RESP 18; TEMP 99.2; O2SAT 97
--- NOTE | 2024-07-13 06:41 | NUR ---
Problems reprioritized. Patient report given, questions answered & plan of care reviewed with Maria A CROUCH.
[2024-07-13 07:07] LABS: BASOPHILS % (AUTO) 0.6 % (0-1); EOSINOPHILS # (AUTO) 0.2 X10'3 (0-0.9); EOSINOPHILS % (AUTO) 3.1 % (0-6); HEMATOCRIT 38.1 % (42.0-52.0); LYMPHOCYTES # (AUTO) 1.2 X10'3 (1.1-4.8); LYMPHOCYTES % (AUTO) 22.7 % (21-51); MEAN CORPUSCULAR HEMOGLOBIN 35.7 PG (27.0-31.0); MEAN CORPUSCULAR HGB CONC 34.2 g/dL (33.0-36.5); MEAN CORPUSCULAR VOLUME 104.2 FL (78-98); MEAN PLATELET VOLUME 8.1 FL (7.4-10.4); MONOCYTES # (AUTO) 0.5 X10'3 (0-0.9); MONOCYTES % (AUTO) 9.2 % (2-12); NEUTROPHILS # (AUTO) 3.4 X10'3 (1.8-7.7); NEUTROPHILS % (AUTO) 64.4 % (42-75); PLATELET COUNT 142 X10'3 (140-440); RED BLOOD COUNT 3.65 X10'6 (4.70-6.10); RED CELL DISTRIBUTION WIDTH 15.5 % (11.5-14.5); WHITE BLOOD COUNT 5.3 X10'3 (4.5-11.0)
[2024-07-13 07:33] LABS: ALANINE AMINOTRANSFERASE 31 U/L (12-78); ALBUMIN 2.2 G/DL (3.4-5.0); ALBUMIN/GLOBULIN RATIO 0.6 (1.1-1.5); ALKALINE PHOSPHATASE 179 IU/L (46-116); ANION GAP 6 (8-16); ASPARTATE AMINO TRANSFERASE 72 U/L (10-37); BILIRUBIN,TOTAL 0.8 MG/DL (0.1-1.0); BLOOD UREA NITROGEN 1 MG/DL (7-18); BUN/CREATININE RATIO 2.5 (10.0-20.0); CALCIUM 7.4 MG/DL (8.5-10.1); CHLORIDE 105 MMOL/L (99-107); GLUCOSE 84 MG/DL (70-104); MAGNESIUM 1.3 MG/DL (1.5-2.4); PHOSPHORUS 3.2 MG/DL (2.3-4.5); POTASSIUM 3.3 MMOL/L (3.5-5.1); SODIUM 138 MMOL/L (135-145); TOTAL CARBON DIOXIDE 26.6 MMOL/L (24-32); TOTAL PROTEIN 5.9 G/DL (6.4-8.2); eCRCL 261 ML/MIN; eGFR > 90 ML/MIN
[2024-07-13 08:33] VITALS: PULSE 94; RESP 16; O2SAT 98
[2024-07-13] MEDS: magnesium sulf-water 4G/100mL 100 ML IV ONE (09:32)
[2024-07-13] MEDS: potassium Cl 20 mEq SR tablet PO STA (09:33)
[2024-07-13] MEDS: thiamine 100mg tablet PO SCH (09:33)
--- NOTE | 2024-07-13 11:25 | NUR ---
Received order for consult. Met with patient in regards to alcohol use and to see if patient was interested in resources for treatment options. Patient is interested in outpatient treatment. I discussed with patient about medication to help him with cravings. He is interested. I gave a patient a list of resources. I also gave patient a card for [facility], where he will get intensive outpatient treatment, medication management and counseling. Patient has my card to call me if he has any questions.
[2024-07-13] MEDS ORDERED: MAGN400C PO (13:07)
[2024-07-13] MEDS ORDERED: POTA-207 PO (13:07)
[2024-07-14] MEDS ORDERED: folic acid 1mg tablet PO SCH (08:00)
== END 2024-07-13 16:15 | disposition home or self-care (01) | DRG 282 ==
LOC: ER 23:14 → ED HOLD 07-10 03:45 → PCU 3S 07-10 04:56
PROVIDERS: ADMIT Internal Medicine Pulmonary Disease; ATTEND Family Medicine
PROC: 05HB33Z Insertion of Infusion Device into Right Basilic Vein, Percutaneous Approach (ICD-10-PCS; principal; 2024-07-13)
DX: K85.90 Acute pancreatitis without necrosis or infection, unspecified (principal); K70.0 Alcoholic fatty liver; K70.9 Alcoholic liver disease, unspecified; E83.51 Hypocalcemia; K31.89 Other diseases of stomach and duodenum; E88.09 Other disorders of plasma-protein metabolism, not elsewhere classified; F10.239 Alcohol dependence with withdrawal, unspecified; E66.9 Obesity, unspecified; E78.5 Hyperlipidemia, unspecified; F10.229 Alcohol dependence with intoxication, unspecified; K86.1 Other chronic pancreatitis; F32.A Depression, unspecified; F19.10 Other psychoactive substance abuse, uncomplicated; G89.29 Other chronic pain; F41.9 Anxiety disorder, unspecified; K21.9 Gastro-esophageal reflux disease without esophagitis; E87.6 Hypokalemia; Z68.31 Body mass index [BMI] 31.0-31.9, adult; Z79.01 Long term (current) use of anticoagulants; Z79.899 Other long term (current) drug therapy
CPT/HCPCS: 36410; 36415; 74176; 76937; 80053; 80061; 80305; 80320; 81001; 82550; 83036; 83690; 83735; 84100; 84132; 85025; 85610; 87081; 94760; 96374; 96375; 97116; 97161; 97530; 99285; A6449; C1751; G0378; J1650; J2060; J2270; J2470; J2560; J3411; J3475; J3480; J3490; J7030; J7040

== ENCOUNTER 2024-10-17 16:27 | Inpatient (IN) | payer MEDICAID ==
[~2024-10-17] VITALS: Ht 182.9 cm; Wt 97.8 kg
[~2024-10-17 16:27] MED LIST changes: -CHLO25CA10 PO; +MAGN400C PO
[2024-10-17] MEDS: LORazepam 1 MG tablet PO ONE (17:07)
[2024-10-17] MEDS: normal saline 1000ml 1,000 ML IV ONE (18:10)
[2024-10-17] MEDS: thiamine 100mg/ml 2ml inj. IV ONE (18:11)
[2024-10-17] MEDS: pantoprazole 40 MG vial IV STA (18:11)
[2024-10-17] MEDS: LORazepam 2 mg/ml vial IV ONE ×2 (18:11→21:58)
[2024-10-17 18:28] LABS: LYMPHOCYTES % (AUTO) 16.2 % (21-51)
[2024-10-17 18:30] LABS: ALANINE AMINOTRANSFERASE 74 U/L (12-78); ALBUMIN/GLOBULIN RATIO 0.6 (1.1-1.5); ALKALINE PHOSPHATASE 350 IU/L (46-116); ANION GAP 6 (8-16); ASPARTATE AMINO TRANSFERASE 162 U/L (10-37); BASOPHILS % (AUTO) 0.3 % (0-1); BILIRUBIN,TOTAL 1.4 MG/DL (0.1-1.0); BLOOD UREA NITROGEN 5 MG/DL (7-18); BUN/CREATININE RATIO 6.9 (10.0-20.0); CALCIUM 8.5 MG/DL (8.5-10.1); CHLORIDE 98 MMOL/L (99-107); CREATININE 0.72 MG/DL (0.60-1.10); EOSINOPHILS % (AUTO) 0.8 % (0-6); ETHANOL 215 MG/DL (<10); GLUCOSE 107 MG/DL (70-104); HEMATOCRIT 48.9 % (42.0-52.0); HEMOGLOBIN 16.4 g/dl (14.0-17.9); LIPASE 25 U/L (16-77); MEAN CORPUSCULAR HEMOGLOBIN 30.7 PG (27.0-31.0); MEAN CORPUSCULAR HGB CONC 33.6 g/dL (33.0-36.5); MEAN CORPUSCULAR VOLUME 91.4 FL (78-98); MEAN PLATELET VOLUME 8.2 FL (7.4-10.4); MONOCYTES # (AUTO) 0.5 X10'3 (0-0.9); MONOCYTES % (AUTO) 9.3 % (2-12); NEUTROPHILS # (AUTO) 4.3 X10'3 (1.8-7.7); NEUTROPHILS % (AUTO) 73.4 % (42-75); RED BLOOD COUNT 5.35 X10'6 (4.70-6.10); RED CELL DISTRIBUTION WIDTH 17.8 % (11.5-14.5); SODIUM 138 MMOL/L (135-145); TOTAL CARBON DIOXIDE 33.6 MMOL/L (24-32); TOTAL PROTEIN 8.3 G/DL (6.4-8.2); WHITE BLOOD COUNT 5.9 X10'3 (4.5-11.0); eCRCL 150 ML/MIN; eGFR > 90 ML/MIN
[2024-10-17 18:38] LABS: POTASSIUM 2.6 MMOL/L (3.5-5.1)
[2024-10-17] MEDS: POTASSIUM CHLORIDE 20 MEQ/15 ML oral solution PO STA (19:02)
[2024-10-17 19:07] LABS: ACETONE NEGATIVE (NEGATIVE)
[2024-10-17 19:09] LABS: PLATELET COUNT 34 X10'3 (140-440)
[2024-10-17] MEDS: potassium Cl 40MEQ/1/2NS 520ml 520 ML IV ONE (19:33)
[2024-10-17] MEDS: folic acid 1mg/0.2ml inj IV ONE (19:33)
[2024-10-17] MEDS: dextrose 5%-normal saline 1,000 ML IV ONE (20:37)
[2024-10-17] MEDS: haloperidol lactate 5mg/ml inj IM ONE (21:58)
[2024-10-17] MEDS: magnesium oxide 400mg tablet PO ONE (22:07)
[2024-10-17] MEDS: chlordiazePOXIDE 25mg capsule PO ONE (22:07)
[2024-10-17 22:09] LABS: MAGNESIUM 1.4 MG/DL (1.5-2.4)
[2024-10-17] MEDS ORDERED: potassium Cl 40MEQ/1/2NS 520ml 520 ML IV PRN (23:40)
[2024-10-17] MEDS ORDERED: potassium Cl 20 mEq SR tablet PO PRN (23:40)
[2024-10-17] MEDS ORDERED: dicyclomine 10 MG capsule PO PRN (23:45)
[2024-10-18] VITALS (7 sets, daily range): BP systolic 144–178; BP diastolic 91–99; PULSE 109–119; RESP 18–20; TEMP 97.7–98.8; O2SAT 93–96
[2024-10-18 00:17] LABS: HEMOGLOBIN A1C 4.9 % (4.5-6.2)
[2024-10-18] MEDS: LORazepam 2 mg/ml vial IV PRN (00:30)
[2024-10-18] MEDS: ringers solution, lacted 1,000 ML IV SCH (00:30)
[2024-10-18 06:12] LABS: INR 1.3 INR; PROTHROMBIN TIME 13.3 SECONDS (9.0-12.0)
[2024-10-18 06:37] LABS: BASOPHILS % (AUTO) 0.6 % (0-1); LYMPHOCYTES # (AUTO) 1.1 X10'3 (1.1-4.8); MEAN CORPUSCULAR HGB CONC 33.6 g/dL (33.0-36.5); MONOCYTES # (AUTO) 0.4 X10'3 (0-0.9)
[2024-10-18 06:39] LABS: EOSINOPHILS % (AUTO) 0.6 % (0-6); HEMATOCRIT 44.3 % (42.0-52.0); HEMOGLOBIN 14.9 g/dl (14.0-17.9); LYMPHOCYTES % (AUTO) 25.5 % (21-51); MEAN CORPUSCULAR HEMOGLOBIN 30.5 PG (27.0-31.0); MEAN CORPUSCULAR VOLUME 90.9 FL (78-98); MEAN PLATELET VOLUME 8.3 FL (7.4-10.4); MONOCYTES % (AUTO) 9.9 % (2-12); NEUTROPHILS # (AUTO) 2.8 X10'3 (1.8-7.7); NEUTROPHILS % (AUTO) 63.4 % (42-75); RED BLOOD COUNT 4.88 X10'6 (4.70-6.10); RED CELL DISTRIBUTION WIDTH 17.9 % (11.5-14.5); WHITE BLOOD COUNT 4.4 X10'3 (4.5-11.0)
[2024-10-18 06:41] LABS: ALANINE AMINOTRANSFERASE 69 U/L (12-78); ALBUMIN 2.8 G/DL (3.4-5.0); ALBUMIN/GLOBULIN RATIO 0.6 (1.1-1.5); ALKALINE PHOSPHATASE 327 IU/L (46-116); ANION GAP 10 (8-16); ASPARTATE AMINO TRANSFERASE 188 U/L (10-37); BLOOD UREA NITROGEN 3 MG/DL (7-18); BUN/CREATININE RATIO 3.7 (10.0-20.0); CALCIUM 7.8 MG/DL (8.5-10.1); CHLORIDE 99 MMOL/L (99-107); CHOL/HDL RATIO 4.3 (0.00-4.99); CHOLESTEROL 134 MG/DL (0-200); CREATININE 0.82 MG/DL (0.60-1.10); GLUCOSE 98 MG/DL (70-104); HDL CHOLESTEROL 31 MG/DL (35-60); LDL CHOLESTEROL 84 MG/DL (50-100); MAGNESIUM 1.1 MG/DL (1.5-2.4); PHOSPHORUS 2.8 MG/DL (2.3-4.5); POTASSIUM 3.5 MMOL/L (3.5-5.1); SODIUM 138 MMOL/L (135-145); TOTAL CARBON DIOXIDE 29.4 MMOL/L (24-32); TOTAL PROTEIN 7.5 G/DL (6.4-8.2); TRIGLYCERIDES 104 MG/DL (20-135); eCRCL 131 ML/MIN; eGFR > 90 ML/MIN
[2024-10-18 06:58] LABS: PLATELET COUNT 25 X10'3 (140-440)
[2024-10-18] MEDS: K and/or MAG REPLACEMENT MC SCH (07:41)
[2024-10-18] MEDS: pantoprazole 40 MG vial IV SCH (07:48)
[2024-10-18] MEDS: nicotine 14mg patch - 24hr TD SCH (07:49)
[2024-10-18] MEDS: multivitamins, therapeutics tablet PO SCH (07:49)
[2024-10-18] MEDS: magnesium Cl slow-release 64mg tablet PO PRN (07:49)
[2024-10-18] MEDS: heparin, porcine 5000 units/ml vial SQ SCH (07:57)
[2024-10-18] MEDS: thiamine 100mg/ml 2ml inj. IV SCH (12:50)
[2024-10-18] MEDS: dextrose 5%-normal saline 1,000 ML IV SCH (12:56)
[2024-10-18] MEDS ORDERED: apixaban 5mg tablet PO SCH (20:00)
[2024-10-18 22:59] LABS: URINE AMPHETAMINE SCREEN NEGATIVE (Neg); URINE BARBITUATE SCREEN NEGATIVE (Neg); URINE BENZODIAZEPINES SCREEN POSITIVE (Neg); URINE CANNABINOID SCREEN NEGATIVE (Neg); URINE COCAINE SCREEN NEGATIVE (Neg); URINE METHADONE SCREEN NEGATIVE (Neg); URINE OPIATE SCREEN NEGATIVE (Neg); URINE PHENCYCLIDINE SCREEN NEGATIVE (Neg)
[2024-10-19] VITALS (7 sets, daily range): BP systolic 111–137; BP diastolic 79–98; PULSE 89–105; RESP 14–20; TEMP 97–98.2; O2SAT 95–99
[2024-10-19 03:56] LABS: MEAN PLATELET VOLUME 8.6 FL (7.4-10.4); MONOCYTES # (AUTO) 0.4 X10'3 (0-0.9)
[2024-10-19 03:58] LABS: BASOPHILS % (AUTO) 0.2 % (0-1); EOSINOPHILS % (AUTO) 0.8 % (0-6); HEMOGLOBIN 14.2 g/dl (14.0-17.9); LYMPHOCYTES # (AUTO) 0.6 X10'3 (1.1-4.8); LYMPHOCYTES % (AUTO) 12.4 % (21-51); MEAN CORPUSCULAR HEMOGLOBIN 30.2 PG (27.0-31.0); MEAN CORPUSCULAR HGB CONC 33.1 g/dL (33.0-36.5); MEAN CORPUSCULAR VOLUME 91.3 FL (78-98); MONOCYTES % (AUTO) 8.8 % (2-12); NEUTROPHILS # (AUTO) 3.5 X10'3 (1.8-7.7); NEUTROPHILS % (AUTO) 77.8 % (42-75); RED CELL DISTRIBUTION WIDTH 18.2 % (11.5-14.5); WHITE BLOOD COUNT 4.5 X10'3 (4.5-11.0)
[2024-10-19 04:04] LABS: INR 1.4 INR
[2024-10-19 04:06] LABS: PLATELET COUNT 20 X10'3 (140-440)
[2024-10-19 04:11] LABS: ALANINE AMINOTRANSFERASE 50 U/L (12-78); ALBUMIN 2.7 G/DL (3.4-5.0); ALBUMIN/GLOBULIN RATIO 0.6 (1.1-1.5); ANION GAP 7 (8-16); ASPARTATE AMINO TRANSFERASE 96 U/L (10-37); BILIRUBIN,TOTAL 2.4 MG/DL (0.1-1.0); BLOOD UREA NITROGEN 5 MG/DL (7-18); BUN/CREATININE RATIO 8.2 (10.0-20.0); CHLORIDE 99 MMOL/L (99-107); CREATININE 0.61 MG/DL (0.60-1.10); GLUCOSE 97 MG/DL (70-104); MAGNESIUM 1.2 MG/DL (1.5-2.4); PHOSPHORUS 2.2 MG/DL (2.3-4.5); POTASSIUM 3.1 MMOL/L (3.5-5.1); SODIUM 133 MMOL/L (135-145); TOTAL CARBON DIOXIDE 26.7 MMOL/L (24-32); TOTAL PROTEIN 7.3 G/DL (6.4-8.2); eCRCL 177 ML/MIN; eGFR > 90 ML/MIN
[2024-10-19 04:12] LABS: ALKALINE PHOSPHATASE 278 IU/L (46-116)
[2024-10-19] MEDS: haloperidol 5mg tablet PO PRN (04:27)
[2024-10-19] MEDS: multivitamins, therapeutics tablet PO SCH (08:00)
[2024-10-19] MEDS: magnesium sulf-water 4G/100mL 100 ML IV PRN (08:36)
[2024-10-19] MEDS: potassium Cl 20 mEq SR tablet PO PRN (08:39)
[2024-10-19] MEDS: pantoprazole 40mg Tablet.DR PO SCH (08:41)
[2024-10-19 08:44] LABS: BILIRUBIN,DIRECT 0.9 MG/DL (0-0.3)
[2024-10-19] MEDS: buprenorphine/naloxone 8MG-2MG SUBlingual film SL SCH (09:06)
[2024-10-19] MEDS: folic acid 1mg/0.2ml inj IV SCH (09:07)
[2024-10-19 09:13] LABS: FIBRINOGEN 217 MG/DL (177-424)
[2024-10-19 09:51] LABS: TOTAL CELLS COUNTED 100
[2024-10-19 09:52] LABS: ANISOCYTOSIS 1+; PLATELET ESTIMATE DECREASED
[2024-10-19 12:03] LABS: HIV ANTIBODY 1&2 RAPID NON-REACTIVE (Neg)
[2024-10-19] MEDS: magnesium sulf-water 2g/50mL 50 ML IV PRN (12:23)
[2024-10-19] MEDS: predniSONE 20 mg tablet PO SCH (15:24)
[2024-10-20] MEDS: LORazepam 2 mg/ml vial IV PRN (00:57)
[2024-10-20] MEDS: LORazepam 1 MG tablet PO PRN (02:04)
[2024-10-20 04:34] LABS: BASOPHILS % (AUTO) 0.2 % (0-1); EOSINOPHILS % (AUTO) 0 % (0-6); HEMATOCRIT 44.4 % (42.0-52.0); HEMOGLOBIN 14.7 g/dl (14.0-17.9); LYMPHOCYTES # (AUTO) 0.4 X10'3 (1.1-4.8); MEAN CORPUSCULAR HEMOGLOBIN 30.6 PG (27.0-31.0); MEAN CORPUSCULAR HGB CONC 33.1 g/dL (33.0-36.5); MEAN CORPUSCULAR VOLUME 92.5 FL (78-98); MEAN PLATELET VOLUME 9.1 FL (7.4-10.4); MONOCYTES # (AUTO) 0.4 X10'3 (0-0.9); MONOCYTES % (AUTO) 7.7 % (2-12); NEUTROPHILS # (AUTO) 3.8 X10'3 (1.8-7.7); NEUTROPHILS % (AUTO) 83.1 % (42-75); RED CELL DISTRIBUTION WIDTH 17.9 % (11.5-14.5); WHITE BLOOD COUNT 4.6 X10'3 (4.5-11.0)
[2024-10-20 04:39] LABS: PLATELET COUNT 21 X10'3 (140-440)
[2024-10-20 04:46] LABS: INR 1.2 INR; PROTHROMBIN TIME 12.4 SECONDS (9.0-12.0)
[2024-10-20 04:54] LABS: ALANINE AMINOTRANSFERASE 43 U/L (12-78); ALBUMIN 2.7 G/DL (3.4-5.0); ALBUMIN/GLOBULIN RATIO 0.6 (1.1-1.5); ALKALINE PHOSPHATASE 255 IU/L (46-116); ANION GAP 8 (8-16); ASPARTATE AMINO TRANSFERASE 68 U/L (10-37); BILIRUBIN,TOTAL 1.6 MG/DL (0.1-1.0); BLOOD UREA NITROGEN 8 MG/DL (7-18); CALCIUM 8.5 MG/DL (8.5-10.1); CHLORIDE 99 MMOL/L (99-107); GLUCOSE 142 MG/DL (70-104); MAGNESIUM 1.9 MG/DL (1.5-2.4); PHOSPHORUS 3.2 MG/DL (2.3-4.5); POTASSIUM 4.1 MMOL/L (3.5-5.1); SODIUM 132 MMOL/L (135-145); TOTAL CARBON DIOXIDE 24.7 MMOL/L (24-32); TOTAL PROTEIN 7.5 G/DL (6.4-8.2); eCRCL 216 ML/MIN; eGFR > 90 ML/MIN
[2024-10-20 06:00] VITALS: BP 122/63; PULSE 66; RESP 13; TEMP 97.8; O2SAT 99
[2024-10-20 08:00] VITALS: RESP 18; O2SAT 99
[2024-10-20 08:11] LABS: HAPTOGLOBIN 146 mg/dL (17-317); HEP A AB, IGM Negative (Negative); HEP B CORE AB, IGM Negative (Negative); HEP B SURF AB Non Reactive (.); HEPATITIS C VIRUS ANTIBODY Non Reactive (Non Reactive)
[2024-10-20 11:00] VITALS: BP 117/73; PULSE 94; RESP 18; TEMP 97.6; O2SAT 93
[2024-10-20] MEDS ORDERED: PRED10TA PO (13:25)
[2024-10-20] MEDS ORDERED: LORA-269 PO (16:47)
[2024-10-21] MEDS ORDERED: thiamine 100mg tablet PO SCH (08:00)
[2024-10-21] MEDS ORDERED: LORazepam 2 mg/ml vial IV PRN (23:45)
[2024-10-21] MEDS ORDERED: LORazepam 1 MG tablet PO PRN (23:45)
[2024-10-22] MEDS ORDERED: folic acid 1mg tablet PO SCH (08:00)
[2024-10-22] MEDS ORDERED: thiamine 100mg tablet PO SCH (08:00)
[2024-10-22 15:09] LABS: HLA CLASS 1 ANTIBODY Negative (Negative); IA/IIA ANTIBODY Negative (Negative); IB/IX ANTIBODY Negative (Negative); IIB/IIIA ANTIBODY Negative (Negative)
[2024-10-23] MEDS ORDERED: folic acid 1mg tablet PO SCH (08:00)
== END 2024-10-20 14:12 | disposition home or self-care (01) | DRG 425 ==
LOC: ER 16:27 → ED HOLD 23:42 → SUR 3N 10-18 00:23
PROVIDERS: ADMIT Internal Medicine Critical Care Medicine; ATTEND Family Medicine
DX: E87.6 Hypokalemia (principal); F10.221 Alcohol dependence with intoxication delirium; D69.6 Thrombocytopenia, unspecified; F10.231 Alcohol dependence with withdrawal delirium; F32.A Depression, unspecified; F41.9 Anxiety disorder, unspecified; G89.29 Other chronic pain; E78.49 Other hyperlipidemia; K21.9 Gastro-esophageal reflux disease without esophagitis; K76.0 Fatty (change of) liver, not elsewhere classified; E83.42 Hypomagnesemia; K70.10 Alcoholic hepatitis without ascites; Z90.49 Acquired absence of other specified parts of digestive tract
CPT/HCPCS: 36415; 76700; 80053; 80061; 80305; 80320; 82009; 82248; 82948; 83010; 83036; 83615; 83690; 83735; 84100; 85007; 85025; 85384; 85610; 86022; 86703; 86705; 86706; 86709; 86803; 86880; 87081; 87522; 93005; 96374; 96375; 99285; A6258; G0378; J1630; J2060; J2470; J3411; J3475; J3480; J3490; J7030; J7042; J7120; J7512